=== PATIENT | male | born 1950 | race American Indian/Alaskan Native ===

== ENCOUNTER 2022-05-14 14:46 | Inpatient (IN) | payer MEDICARE ==
--- NOTE | 2022-05-15 11:22 | Consultation ---
History of Present Illness - Reason for Consult Consult date: 05/15/22 Medical management Requesting physician: ANN JAMES - History of Present Illness 71 YO Male with Vascular Dementia with behavioral disturbance, Cerebral Atherosclerosis admitted to [facility] unit for psychiatric stabilization. Patient seen and evaluated in the recreation room. Patient denies fever, chills, chest pain, palpitation, adductive cough, skin rash and recent contact, no known exposure to COVID-19. Patient appears to be at baseline level of cognition and function. No reported nursing events. Past History Past Medical History: other (See HPI) Past Surgical History: No surgical history, Other (Reviewed) Social history: single. denies: smoking, alcohol abuse, prescription drug abuse Family history: diabetes, hypertension Medications and Allergies Allergies Allergy/AdvReac Type Severity Reaction Status Date / Time Penicillins Allergy Unknown Verified 05/14/22 23:31 Home Medications Medication Instructions Recorded Confirmed Last Taken Type Asenapine Maleate [Saphris] 5 mg SL HS 05/15/22 05/15/22 Unknown History Review of Systems Constitutional: no weight loss, no weight gain, no fever, no chills Ears, nose, mouth and throat: no ear pain, no tinnitis, no decreased hearing, no nasal congestion, no nasal discharge Gastrointestinal: no abdominal pain, no nausea, no constipation Genitourinary Male: no hematuria, no flank pain, no discharge Rectal: no pain, no incontinence, no bleeding Musculoskeletal: no neck stiffness, no neck pain, no shooting arm pain, no low back pain, no shooting leg pain Integumentary: no rash, no pruritis, no redness, no sores Neurological: no head injury, no paralysis, no parathesias, no numbness, no seizures Psychiatric: anxiety attacks, irritability, sadness/tearfullness, mood swings Endocrine: no cold intolerance, no polyphagia, no excessive thirst, no polyd ipsia, no nocturia, no excessive sweating Hematologic/Lymphatic: no easy bruising, no easy bleeding Allergic/Immunologic: no allergic rhinitis, no wheezing Exam - Constitutional Vitals: Temp Pulse Resp BP Pulse Ox 97.6 F 49 L 16 104/62 100 05/15/22 08:00 05/15/22 08:00 05/15/22 08:00 05/15/22 08:00 05/15/22 08:00 General appearance: Present: no acute distress - EENT Eyes: Present: PERRL ENT: hearing intact, clear oral mucosa - Neck Neck: Present: supple, normal ROM - Respiratory Respiratory effort: normal Respiratory: bilateral: CTA - Cardiovascular Heart Sounds: Present: S1 & S2. Absent: rub, click - Extremities Extremities: pulses symmetrical, No edema Peripheral Pulses: within normal limits - Abdominal General gastrointestinal: Present: soft, non-tender, non-distended, normal bowel sounds Male genitourinary: Present: normal - Integumentary Integumentary: Present: clear, warm, dry - Musculoskeletal Musculoskeletal: gait normal, strength equal bilaterally - Psychiatric Psychiatric: appropriate mood/affect, intact judgment & insight - Neurologic Neurologic: CNII-XII intact, moves all extremities Results - Labs CBC & Chem 7: 05/15/22 20:45 05/15/22 20:45 Assessment and Plan - Patient Problems (1) Vascular dementia with behavioral disturbance Current Visit: Yes Status: Acute Plan to address problem: For prompt, verbal redirection, benzodiazepine therapy as clinic indicated. (2) Cerebral atherosclerosis Current Visit: Yes Status: Acute Plan to address problem: Risk factor reduction, antiplatelet therapy as clinically indicated. (3) Major depression Current Visit: Yes Status: Acute Plan to address problem: Continue medical management, supportive care. (4) Generalized anxiety disorder Current Visit: Yes Status: Acute Plan to address problem: Benzodiazepine therapy as clinically indicated, supportive care (5) Advance care planning Current Visit: Yes Status: Acute Plan to address problem: Disease education data, care plan discussed, diagnoses discussed, prognosis discussed, patient is full code, +30 minutes. (6) Preventative health care Current Visit: Yes Status: Acute Plan to address problem: Patient counseled regarding home safety, outpatient follow-up with primary care physician for all age and risk factor appropriate screening test. +30 minutes.
--- NOTE | 2022-05-15 13:09 | History and Physical Report ---
GP History & Physical - History of Present Illness Date of admission: 05/14/22 Date of Examination: 05/15/22 Reason for Admission: Danger to self, Failure of Outpatient Treatment, Severe anxiety/depression History of Present Illness: HPI: Hx/o Dementia with psychosis symptoms. Pt wondering out of the house, confused, agitated, and non-compliance medication. Aggressive behaviors with at home. The patient was seen today. He is lying in bed confused and disorganized. He is mumbling and not making any sense. PAST PSYCHIATRIC HISTORY: Unable to assess PAST MEDICAL HISTORY: None reported Family Psychiatric History None reported or documented SOCIAL HISTORY Unable to assess REVIEW OF SYSTEMS Unable to assess MENTAL STATUS Unable to assess Treatment Plan Patient will be admitted for inpatient psychiatric evaluation, medication adjustment and close monitoring The patient's behavior, mood, sleep and appetite will be closely monitored. Patient will be enrolled in individual and group therapeutic sessions and encouraged to attend. Patient will be provided with a safe and structured environment. Patient's physical health needs will be addressed by the Hospitalist. Hospitalist Consulted Labs including CBC, CMP, Lipid profile and Hemoglobin A1C ordered Social Assessment will be completed and the [employer] will work with patient and family to ensure a suitable and safe disposition Medication adjustment will be made as clinically indicated Restarted home med Usual Wellness Worship/Preservation: -Trazodone 50mg po qhs - Start [place]-3 for brain health, reduce impulsivity, and as adjunctive treatment for mood disorder, continue upon discharge given overall benefits. The patient agreed on the treatment plan, understood the risk, benefit, alternative treatment, potential consequence of no treatment, and gave informed consent. Legal Status: Voluntary Reaction to Hospitalization: Accepting Medications and Allergies Allergies Allergy/AdvReac Type Severity Reaction Status Date / Time Penicillins Allergy Unknown Verified 05/14/22 23:31 Home Medications Medication Instructions Recorded Confirmed Last Taken Type Asenapine Maleate [Saphris] 5 mg SL HS 05/15/22 05/15/22 Unknown History Active Meds: Active Medications Miscellaneous Medication (Asenapine Maleate [Saphris]) 5 mg SL HS [facility] Results - Results Labs/Vitals: Laboratory Last Values POC Glucose 83 mg/dL (70-105) 05/15/22 11:16 Last Vital Signs Temp 97.6 F 05/15/22 08:00 Pulse 49 L 05/15/22 08:00 Resp 16 05/15/22 08:00 BP 104/62 08/02/22 08:00 Pulse Ox 100 05/15/22 08:00 Physical Examination - Constitutional Vitals: Vital Signs Temp Pulse Resp BP Pulse Ox 97.6 F 49 L 16 104/62 100 05/15/22 08:00 05/15/22 08:00 05/15/22 08:00 05/15/22 08:00 05/15/22 08:00 Temperature -Last 24 Hours Temperature 97.6 F Temperature 98.3 F Mental Status Exam - Vital signs Last Vital Signs Temp 97.6 F 05/15/22 08:00 Pulse 49 L 05/15/22 08:00 Resp 16 05/15/22 08:00 BP 104/62 05/15/22 08:00 Pulse Ox 100 05/15/22 08:00 Physician Certification - Certification Statement Physician Certification Statement: This is an acknowledgement statement that ALEXSANDRA MASTERS is a 71 year old M who requires inpatient psychiatric admission for treatment which could reasonably be expected to improve the patient's condition for Estimated period of time patient will need to remain in the hospital: [ ] Plan for post-hospital care: [ ]
[2022-05-15 21:11] LABS: Basophils # (Auto) 0.1 K/mm3 (0.0-0.1); Basophils % (Auto) 0.9 % (0.0-1.8); Eosinophils # (Auto) 0.1 K/mm3 (0.0-0.4); Eosinophils % (Auto) 1.9 % (0.0-4.3); Hemoglobin 13.9 gm/dl (11.8-15.2); Lymphocytes # (Auto) 2.2 K/mm3 (1.2-5.4); Lymphocytes % (Auto) 28.8 % (13.4-35.0); Mean Corpuscular HGB Conc 33 % (32-34); Mean Corpuscular Volume 87 fl (84-94); Monocytes # (Auto) 0.5 K/mm3 (0.0-0.8); Monocytes % (Auto) 5.9 % (0.0-7.3); Platelet Count 317 K/mm3 (140-440); Red Blood Count 4.82 M/mm3 (3.65-5.03); Red Cell Distribution Width 13.6 % (13.2-15.2)
[2022-05-15] MEDS: traZODone 50 MG TAB PO SCH (21:21)
[2022-05-15] MEDS: OMEGA-3 FATTY ACIDS/FISH OIL 1 GRAM CAP PO SCH (21:21)
[2022-05-15] MEDS: ASENAPINE MALEATE 5 MG SL SCH (21:22)
[2022-05-15 21:26] LABS: Alanine Aminotransferase 12 units/L (7-56); BUN/Creatinine Ratio 8; Blood Urea Nitrogen 11 mg/dL (9-20); Calcium 9.2 mg/dL (8.4-10.2); Chol/HDL Ratio 2.48 %; HDL Cholesterol 60 mg/dL (40-59); Hemolysis Index 29; LDL Cholesterol,Direct 81 mg/dL (50-130)
[2022-05-16] MEDS: OMEGA-3 FATTY ACIDS/FISH OIL 1 GRAM CAP PO SCH ×4 (09:15→23:48)
--- NOTE | 2022-05-16 16:25 | Progress Note ---
Subjective Date of service: 05/16/22 Principal diagnosis: Dementia with Behavioral Disturbance Subjective Comment: The patient was seen today. He is in the dayroom eating. He is confused. He does say that he slept well and is doing ok. He starts mumbling after that. Staff says the patient is not eating or sleeping. REVIEW OF SYSTEMS Unable to assess MENTAL STATUS Unable to assess Treatment Plan Patient will be admitted for inpatient psychiatric evaluation, medication adjustment and close monitoring The patient's behavior, mood, sleep and appetite will be closely monitored. Patient will be enrolled in individual and group therapeutic sessions and encouraged to attend. Patient will be provided with a safe and structured environment. Patient's physical health needs will be addressed by the Hospitalist. Hospitalist Consulted Labs including CBC, CMP, Lipid profile and Hemoglobin A1C ordered Social Assessment will be completed and the [employer] will work with patient and family to ensure a suitable and safe disposition Medication adjustment will be made as clinically indicated Start Mirtazepine 7.5mg po qhs to induces sleep and stimulate appetite Usual Wellness Yazidi/Preservation: -Trazodone 50mg po qhs - Start [place]-3 for brain health, reduce impulsivity, and as adjunctive treatment for mood disorder, continue upon discharge given overall benefits. The patient agreed on the treatment plan, understood the risk, benefit, alternative treatment, potential consequence of no treatment, and gave informed consent. Case staffed with Dr. Joy Medications and Allergies Allergies Allergy/AdvReac Type Severity Reaction Status Date / Time Penicillins Allergy Unknown Verified 05/14/22 23:31 Home Medications Medication Instructions Recorded Confirmed Last Taken Type Asenapine Maleate [Saphris] 5 mg SL HS 05/15/22 05/15/22 Unknown History Active Meds: Active Medications Fish Oil ([place]-3 Fatty Acids/Fish Oil 1 Gram Cap) 2,000 mg PO BID [facility] Last Admin: 05/16/22 10:04 Dose: Not Given Miscellaneous Medication (Asenapine Maleate [Saphris]) 5 mg SL HS [facility] Last Admin: 05/15/22 21:22 Dose: Not Given Trazodone HCl (Trazodone 50 Mg Tab) 50 mg PO QHS [facility] Last Admin: 05/15/22 21:21 Dose: 50 mg Results - Results Labs/Vitals: Laboratory Last Values WBC 7.7 K/mm3 (4.5-11.0) 05/15/22 20:45 RBC 4.82 M/mm3 (3.65-5.03) 05/15/22 20:45 Hgb 13.9 gm/dl (11.8-15.2) 05/15/22 20:45 Hct 42.0 % (35.5-45.6) 05/15/22 20:45 MCV 87 fl (84-94) 05/15/22 20:45 MCH 29 pg (28-32) 05/15/22 20:45 MCHC 33 % (32-34) 05/15/22 20:45 RDW 13.6 % (13.2-15.2) 05/15/22 20:45 Plt Count 317 K/mm3 (140-440) 05/15/22 20:45 Lymph % (Auto) 28.8 % (13.4-35.0) 05/15/22 20:45 [place] % (Auto) 5.9 % (0.0-7.3) 05/15/22 20:45 Eos % (Auto) 1.9 % (0.0-4.3) 05/15/22 20:45 Baso % (Auto) 0.9 % (0.0-1.8) 05/15/22 20:45 Lymph # (Auto) 2.2 K/mm3 (1.2-5.4) 05/15/22 20:45 [place] # (Auto) 0.5 K/mm3 (0.0-0.8) 05/15/22 20:45 Eos # (Auto) 0.1 K/mm3 (0.0-0.4) 05/15/22 20:45 Baso # (Auto) 0.1 K/mm3 (0.0-0.1) 05/15/22 20:45 Seg Neutrophils % 62.5 % (40.0-70.0) 05/15/22 20:45 Seg Neutrophils # 4.8 K/mm3 (1.8-7.7) 05/15/22 20:45 Sodium 140 mmol/L (137-145) 05/15/22 20:45 Potassium 3.7 mmol/L (3.6-5.0) 05/15/22 20:45 Chloride 102.0 mmol/L (98-107) 05/15/22 20:45 Carbon Dioxide 28 mmol/L (22-30) 05/15/22 20:45 Anion Gap 14 mmol/L 05/15/22 20:45 BUN 11 mg/dL (9-20) 05/15/22 20:45 Creatinine 1.3 mg/dL (0.8-1.3) 05/15/22 20:45 Estimated GFR > 60 ml/min 05/15/22 20:45 BUN/Creatinine Ratio 8 % 05/15/22 20:45 Glucose 84 mg/dL (75-100) 05/15/22 20:45 POC Glucose 80 mg/dL (70-105) 05/16/22 11:43 Hemoglobin A1c 5.6 % (4-6) 05/15/22 20:45 Calcium 9.2 mg/dL (8.4-10.2) 05/15/22 20:45 Total Bilirubin 0.50 mg/dL (0.1-1.2) 05/15/22 20:45 AST 18 units/L (5-40) 05/15/22 20:45 ALT 12 units/L (7-56) 05/15/22 20:45 Alkaline Phosphatase 61 units/L (35-129) 05/15/22 20:45 Total Protein 6.7 g/dL (6.3-8.2) 05/15/22 20:45 Albumin 4.0 g/dL (3.9-5) 05/15/22 20:45 Albumin/Globulin Ratio 1.5 % 05/15/22 20:45 Triglycerides 89 mg/dL (2-149) 05/15/22 20:45 Cholesterol 149 mg/dL (50-199) 05/15/22 20:45 LDL Cholesterol Direct 81 mg/dL (50-130) 05/15/22 20:45 HDL Cholesterol 60 mg/dL (40-59) H 05/15/22 20:45 Cholesterol/HDL Ratio 2.48 % 05/15/22 20:45 TSH 1.590 mlU/mL (0.270-4.200) 05/15/22 20:45 Last Vital Signs Temp 97.3 F L 05/16/22 09:52 Pulse 56 L 05/16/22 09:52 Resp 18 05/16/22 09:52 BP 99/53 05/16/22 09:52 Pulse Ox 98 05/16/22 09:52
[2022-05-16] MEDS: MIRTAZAPINE 15 MG TAB PO SCH (21:13)
[2022-05-16] MEDS: traZODone 50 MG TAB PO SCH (21:13)
[2022-05-16] MEDS: ASENAPINE MALEATE 5 MG SL SCH (21:14)
--- NOTE | 2022-05-17 09:41 | Progress Note ---
Subjective Date of service: 05/17/22 Principal diagnosis: Dementia with Behavioral Disturbance Subjective Comment: The patient was seen today. He is in the dayroom eating. He is confused. He does not speak today. He just mumbles and stares around. REVIEW OF SYSTEMS Unable to assess MENTAL STATUS Unable to assess Treatment Plan Patient will be admitted for inpatient psychiatric evaluation, medication adjustment and close monitoring The patient's behavior, mood, sleep and appetite will be closely monitored. Patient will be enrolled in individual and group therapeutic sessions and encouraged to attend. Patient will be provided with a safe and structured environment. Patient's physical health needs will be addressed by the Hospitalist. Hospitalist Consulted Labs including CBC, CMP, Lipid profile and Hemoglobin A1C ordered Social Assessment will be completed and the [employer] will work with patient and family to ensure a suitable and safe disposition Medication adjustment will be made as clinically indicated Start Mirtazepine 7.5mg po qhs to induces sleep and stimulate appetite yesterday No changes made today Usual Wellness Church/Preservation: -Trazodone 50mg po qhs - Start [place]-3 for brain health, reduce impulsivity, and as adjunctive treatment for mood disorder, continue upon discharge given overall benefits. The patient agreed on the treatment plan, understood the risk, benefit, alternative treatment, potential consequence of no treatment, and gave informed consent. Case staffed with Dr. Joy Medications and Allergies Allergies Allergy/AdvReac Type Severity Reaction Status Date / Time Penicillins Allergy Unknown Verified 05/14/22 23:31 Home Medications Medication Instructions Recorded Confirmed Last Taken Type Asenapine Maleate [Saphris] 5 mg [facility] 05/15/22 05/15/22 Unknown History Active Meds: Active Medications Fish Oil ([place]-3 Fatty Acids/Fish Oil 1 Gram Cap) 2,000 mg PO BID [facility] Last Admin: 05/16/22 23:48 Dose: Not Given Mirtazapine (Mirtazapine 15 Mg Tab) 7.5 mg PO QHS [facility] Last Admin: 05/16/22 21:13 Dose: 7.5 mg Miscellaneous Medication (Asenapine Maleate [Saphris]) 5 mg SL [facility] Last Admin: 05/16/22 21:14 Dose: Not Given Trazodone HCl (Trazodone 50 Mg Tab) 50 mg PO QHS [facility] Last Admin: 05/16/22 21:13 Dose: 50 mg Results - Results Labs/Vitals: Laboratory Last Values WBC 7.7 K/mm3 (4.5-11.0) 05/15/22 20:45 RBC 4.82 M/mm3 (3.65-5.03) 05/15/22 20:45 Hgb 13.9 gm/dl (11.8-15.2) 05/15/22 20:45 Hct 42.0 % (35.5-45.6) 05/15/22 20:45 MCV 87 fl (84-94) 05/15/22 20:45 MCH 29 pg (28-32) 05/15/22 20:45 MCHC 33 % (32-34) 05/15/22 20:45 RDW 13.6 % (13.2-15.2) 05/15/22 20:45 Plt Count 317 K/mm3 (140-440) 05/15/22 20:45 Lymph % (Auto) 28.8 % (13.4-35.0) 05/15/22 20:45 [place] % (Auto) 5.9 % (0.0-7.3) 05/15/22 20:45 Eos % (Auto) 1.9 % (0.0-4.3) 05/15/22 20:45 Baso % (Auto) 0.9 % (0.0-1.8) 05/15/22 20:45 Lymph # (Auto) 2.2 K/mm3 (1.2-5.4) 05/15/22 20:45 [place] # (Auto) 0.5 K/mm3 (0.0-0.8) 05/15/22 20:45 Eos # (Auto) 0.1 K/mm3 (0.0-0.4) 05/15/22 20:45 Baso # (Auto) 0.1 K/mm3 (0.0-0.1) 05/15/22 20:45 Seg Neutrophils % 62.5 % (40.0-70.0) 05/15/22 20:45 Seg Neutrophils # 4.8 K/mm3 (1.8-7.7) 05/15/22 20:45 Sodium 140 mmol/L (137-145) 05/15/22 20:45 Potassium 3.7 mmol/L (3.6-5.0) 05/15/22 20:45 Chloride 102.0 mmol/L (98-107) 05/15/22 20:45 Carbon Dioxide 28 mmol/L (22-30) 05/15/22 20:45 Anion Gap 14 mmol/L 05/15/22 20:45 BUN 11 mg/dL (9-20) 05/15/22 20:45 Creatinine 1.3 mg/dL (0.8-1.3) 05/15/22 20:45 Estimated GFR > 60 ml/min 05/15/22 20:45 BUN/Creatinine Ratio 8 % 05/15/22 20:45 Glucose 84 mg/dL (75-100) 05/15/22 20:45 POC Glucose 80 mg/dL (70-105) 05/16/22 11:43 Hemoglobin A1c 5.6 % (4-6) 05/15/22 20:45 Calcium 9.2 mg/dL (8.4-10.2) 05/15/22 20:45 Total Bilirubin 0.50 mg/dL (0.1-1.2) 05/15/22 20:45 AST 18 units/L (5-40) 05/15/22 20:45 ALT 12 units/L (7-56) 05/15/22 20:45 Alkaline Phosphatase 61 units/L (35-129) 05/15/22 20:45 Total Protein 6.7 g/dL (6.3-8.2) 05/15/22 20:45 Albumin 4.0 g/dL (3.9-5) 05/15/22 20:45 Albumin/Globulin Ratio 1.5 % 05/15/22 20:45 Triglycerides 89 mg/dL (2-149) 05/15/22 20:45 Cholesterol 149 mg/dL (50-199) 05/15/22 20:45 LDL Cholesterol Direct 81 mg/dL (50-130) 05/15/22 20:45 HDL Cholesterol 60 mg/dL (40-59) H 05/15/22 20:45 Cholesterol/HDL Ratio 2.48 % 05/15/22 20:45 TSH 1.590 mlU/mL (0.270-4.200) 05/15/22 20:45 Last Vital Signs Temp 98.0 F 05/17/22 07:32 Pulse 47 L 05/17/22 07:32 Resp 20 05/17/22 07:32 BP 120/75 05/17/22 07:32 Pulse Ox 100 05/17/22 07:32
[2022-05-17] MEDS: OMEGA-3 FATTY ACIDS/FISH OIL 1 GRAM CAP PO SCH (10:15)
--- NOTE | 2022-05-17 18:56 | Progress Note ---
Assessment and Plan - Patient Problems (1) Vascular dementia with behavioral disturbance Current Visit: Yes Status: Acute Plan to address problem: For prompt, verbal redirection, benzodiazepine therapy as clinic indicated. (2) Cerebral atherosclerosis Current Visit: Yes Status: Acute Plan to address problem: Risk factor reduction, antiplatelet therapy as clinically indicated. (3) Major depression Current Visit: Yes Status: Acute Plan to address problem: Continue medical management, supportive care. (4) Generalized anxiety disorder Current Visit: Yes Status: Acute Plan to address problem: Benzodiazepine therapy as clinically indicated, supportive care (5) Advance care planning Current Visit: Yes Status: Acute Plan to address problem: Disease education data, care plan discussed, diagnoses discussed, prognosis discussed, patient is full code, +30 minutes. (6) Preventative health care Current Visit: Yes Status: Acute Plan to address problem: Patient counseled regarding home safety, outpatient follow-up with primary care physician for all age and risk factor appropriate screening test. +30 minutes. History Interval history: 71 YO Male with Vascular Dementia with behavioral disturbance, Cerebral Atherosclerosis admitted to [facility] psych unit for psychiatric stabilization. consult placed by Dr. Reid for medical management. Patient seen and evaluated in the recreation room. Patient appears to be at baseline level of cognition and function. No reported nursing events. Hospitalist Physical - Constitutional Vitals: Temp Pulse Resp BP Pulse Ox 98.0 F 47 L 20 120/75 100 05/17/22 07:32 05/17/22 07:32 05/17/22 07:32 05/17/22 07:32 05/17/22 07:32 General appearance: Present: no acute distress - EENT Eyes: Present: PERRL ENT: hearing decreased - Neck Neck: Present: supple - Respiratory Respiratory effort: normal Respiratory: bilateral: diminished - Cardiovascular Rhythm: regular Heart Sounds: Present: S1 & S2 - Extremities Extremities: no ischemia Peripheral Pulses: within normal limits - Abdominal General gastrointestinal: soft, non-tender, non-distended - Integumentary Integumentary: Present: clear, dry - Psychiatric Psychiatric: cooperative - Neurologic Neurologic: CNII-XII intact Results - Labs CBC & Chem 7: 05/15/22 20:45 05/15/22 20:45 Labs: Laboratory Last Values WBC 7.7 K/mm3 (4.5-11.0) 05/15/22 20:45 RBC 4.82 M/mm3 (3.65-5.03) 05/15/22 20:45 Hgb 13.9 gm/dl (11.8-15.2) 05/15/22 20:45 Hct 42.0 % (35.5-45.6) 05/15/22 20:45 MCV 87 fl (84-94) 05/15/22 20:45 MCH 29 pg (28-32) 05/15/22 20:45 MCHC 33 % (32-34) 05/15/22 20:45 RDW 13.6 % (13.2-15.2) 05/15/22 20:45 Plt Count 317 K/mm3 (140-440) 05/15/22 20:45 Lymph % (Auto) 28.8 % (13.4-35.0) 05/15/22 20:45 [facility] % (Auto) 5.9 % (0.0-7.3) 05/15/22 20:45 Eos % (Auto) 1.9 % (0.0-4.3) 05/15/22 20:45 Baso % (Auto) 0.9 % (0.0-1.8) 05/15/22 20:45 Lymph # (Auto) 2.2 K/mm3 (1.2-5.4) 05/15/22 20:45 [facility] # (Auto) 0.5 K/mm3 (0.0-0.8) 05/15/22 20:45 Eos # (Auto) 0.1 K/mm3 (0.0-0.4) 05/15/22 20:45 Baso # (Auto) 0.1 K/mm3 (0.0-0.1) 05/15/22 20:45 Seg Neutrophils % 62.5 % (40.0-70.0) 05/15/22 20:45 Seg Neutrophils # 4.8 K/mm3 (1.8-7.7) 05/15/22 20:45 Sodium 140 mmol/L (137-145) 05/15/22 20:45 Potassium 3.7 mmol/L (3.6-5.0) 05/15/22 20:45 Chloride 102.0 mmol/L (98-107) 05/15/22 20:45 Carbon Dioxide 28 mmol/L (22-30) 05/15/22 20:45 Anion Gap 14 mmol/L 05/15/22 20:45 BUN 11 mg/dL (9-20) 05/15/22 20:45 Creatinine 1.3 mg/dL (0.8-1.3) 05/15/22 20:45 Estimated GFR > 60 ml/min 05/15/22 20:45 BUN/Creatinine Ratio 8 % 05/15/22 20:45 Glucose 84 mg/dL (75-100) 05/15/22 20:45 POC Glucose 80 mg/dL (70-105) 05/16/22 11:43 Hemoglobin A1c 5.6 % (4-6) 05/15/22 20:45 Calcium 9.2 mg/dL (8.4-10.2) 05/15/22 20:45 Total Bilirubin 0.50 mg/dL (0.1-1.2) 05/15/22 20:45 AST 18 units/L (5-40) 05/15/22 20:45 ALT 12 units/L (7-56) 05/15/22 20:45 Alkaline Phosphatase 61 units/L (35-129) 05/15/22 20:45 Total Protein 6.7 g/dL (6.3-8.2) 05/15/22 20:45 Albumin 4.0 g/dL (3.9-5) 05/15/22 20:45 Albumin/Globulin Ratio 1.5 % 05/15/22 20:45 Triglycerides 89 mg/dL (2-149) 05/15/22 20:45 Cholesterol 149 mg/dL (50-199) 05/15/22 20:45 LDL Cholesterol Direct 81 mg/dL (50-130) 05/15/22 20:45 HDL Cholesterol 60 mg/dL (40-59) H 05/15/22 20:45 Cholesterol/HDL Ratio 2.48 % 05/15/22 20:45 TSH 1.590 mlU/mL (0.270-4.200) 05/15/22 20:45 Bailey/IV: Voiding Method Incontinent Active Medications - Current Medications Current Medications: Generic Name Dose Route Start Last Admin Trade Name Freq PRN Reason Stop Dose Admin Mirtazapine 7.5 mg 05/16/22 22:00 05/16/22 21:13 Mirtazapine 15 Mg Tab PO 7.5 mg QHS [facility] Administration Miscellaneous Medication 5 mg 05/15/22 22:00 05/16/22 21:14 Asenapine Maleate [Saphris] SL Not Given HS [facility] Trazodone HCl 50 mg 05/15/22 22:00 05/16/22 21:13 Trazodone 50 Mg Tab PO 50 mg QHS [facility] Administration
[2022-05-17] MEDS: traZODone 50 MG TAB PO SCH (21:34)
[2022-05-17] MEDS: MIRTAZAPINE 15 MG TAB PO SCH (21:35)
[2022-05-17] MEDS: ASENAPINE MALEATE 5 MG SL SCH (23:48)
--- NOTE | 2022-05-18 12:38 | Progress Note ---
Subjective Date of service: 05/18/22 Principal diagnosis: Dementia with Behavioral Disturbance Subjective Comment: 05/18: The patient was seen eating breakfast. He is calm but not engaging with the provider. No aggressive behavior reported. REVIEW OF SYSTEMS Unable to assess MENTAL STATUS Unable to assess Treatment Plan Dementia Patient will be admitted for inpatient psychiatric evaluation, medication adjustment and close monitoring The patient's behavior, mood, sleep and appetite will be closely monitored. Patient will be enrolled in individual and group therapeutic sessions and encouraged to attend. Patient will be provided with a safe and structured environment. Patient's physical health needs will be addressed by the Hospitalist. Hospitalist Consulted Labs including CBC, CMP, Lipid profile and Hemoglobin A1C ordered Social Assessment will be completed and the Advisor Consultant will work with patient and family to ensure a suitable and safe disposition Medication adjustment will be made as clinically indicated Continue Mirtazepine 7.5mg po qhs No changes made today Usual Wellness Islam/Preservation: -Trazodone 50mg po qhs - Start [place]-3 for brain health, reduce impulsivity, and as adjunctive treatment for mood disorder, continue upon discharge given overall benefits. The patient agreed on the treatment plan, understood the risk, benefit, alternative treatment, potential consequence of no treatment, and gave informed consent. Case staffed with Dr. Joy Medications and Allergies Allergies Allergy/AdvReac Type Severity Reaction Status Date / Time Penicillins Allergy Unknown Verified 05/14/22 23:31 Home Medications Medication Instructions Recorded Confirmed Last Taken Type Asenapine Maleate [Saphris] 5 mg SL HS 05/15/22 05/15/22 Unknown History Active Meds: Active Medications Mirtazapine (Mirtazapine 15 Mg Tab) 7.5 mg PO QHS [facility] Last Admin: 05/17/22 21:35 Dose: 7.5 mg Miscellaneous Medication (Asenapine Maleate [Saphris]) 5 mg SL HS [facility] Last Admin: 05/17/22 23:48 Dose: Not Given Trazodone HCl (Trazodone 50 Mg Tab) 50 mg PO QHS [facility] Last Admin: 05/17/22 21:34 Dose: 50 mg Results - Results Labs/Vitals: Laboratory Last Values WBC 7.7 K/mm3 (4.5-11.0) 05/15/22 20:45 RBC 4.82 M/mm3 (3.65-5.03) 05/15/22 20:45 Hgb 13.9 gm/dl (11.8-15.2) 05/15/22 20:45 Hct 42.0 % (35.5-45.6) 05/15/22 20:45 MCV 87 fl (84-94) 05/15/22 20:45 MCH 29 pg (28-32) 05/15/22 20:45 MCHC 33 % (32-34) 05/15/22 20:45 RDW 13.6 % (13.2-15.2) 05/15/22 20:45 Plt Count 317 K/mm3 (140-440) 05/15/22 20:45 Lymph % (Auto) 28.8 % (13.4-35.0) 05/15/22 20:45 [place] % (Auto) 5.9 % (0.0-7.3) 05/15/22 20:45 Eos % (Auto) 1.9 % (0.0-4.3) 05/15/22 20:45 Baso % (Auto) 0.9 % (0.0-1.8) 05/15/22 20:45 Lymph # (Auto) 2.2 K/mm3 (1.2-5.4) 05/15/22 20:45 [place] # (Auto) 0.5 K/mm3 (0.0-0.8) 05/15/22 20:45 Eos # (Auto) 0.1 K/mm3 (0.0-0.4) 05/15/22 20:45 Baso # (Auto) 0.1 K/mm3 (0.0-0.1) 05/15/22 20:45 Seg Neutrophils % 62.5 % (40.0-70.0) 05/15/22 20:45 Seg Neutrophils # 4.8 K/mm3 (1.8-7.7) 05/15/22 20:45 Sodium 140 mmol/L (137-145) 05/15/22 20:45 Potassium 3.7 mmol/L (3.6-5.0) 05/15/22 20:45 Chloride 102.0 mmol/L (98-107) 05/15/22 20:45 Carbon Dioxide 28 mmol/L (22-30) 05/15/22 20:45 Anion Gap 14 mmol/L 05/15/22 20:45 BUN 11 mg/dL (9-20) 05/15/22 20:45 Creatinine 1.3 mg/dL (0.8-1.3) 05/15/22 20:45 Estimated GFR > 60 ml/min 05/15/22 20:45 BUN/Creatinine Ratio 8 % 05/15/22 20:45 Glucose 84 mg/dL (75-100) 05/15/22 20:45 POC Glucose 80 mg/dL (70-105) 05/16/22 11:43 Hemoglobin A1c 5.6 % (4-6) 05/15/22 20:45 Calcium 9.2 mg/dL (8.4-10.2) 05/15/22 20:45 Total Bilirubin 0.50 mg/dL (0.1-1.2) 05/15/22 20:45 AST 18 units/L (5-40) 05/15/22 20:45 ALT 12 units/L (7-56) 05/15/22 20:45 Alkaline Phosphatase 61 units/L (35-129) 05/15/22 20:45 Total Protein 6.7 g/dL (6.3-8.2) 05/15/22 20:45 Albumin 4.0 g/dL (3.9-5) 05/15/22 20:45 Albumin/Globulin Ratio 1.5 % 05/15/22 20:45 Triglycerides 89 mg/dL (2-149) 05/15/22 20:45 Cholesterol 149 mg/dL (50-199) 05/15/22 20:45 LDL Cholesterol Direct 81 mg/dL (50-130) 05/15/22 20:45 HDL Cholesterol 60 mg/dL (40-59) H 05/15/22 20:45 Cholesterol/HDL Ratio 2.48 % 05/15/22 20:45 TSH 1.590 mlU/mL (0.270-4.200) 05/15/22 20:45 Last Vital Signs Temp 97.4 F L 05/18/22 10:32 Pulse 51 L 05/18/22 10:32 Resp 16 05/18/22 10:32 BP 112/62 05/18/22 10:32 Pulse Ox 100 05/18/22 10:32
[2022-05-18] MEDS: MIRTAZAPINE 15 MG TAB PO SCH (21:14)
[2022-05-18] MEDS: traZODone 50 MG TAB PO SCH (21:14)
[2022-05-18] MEDS: ASENAPINE MALEATE 5 MG SL SCH (21:15)
--- NOTE | 2022-05-19 09:52 | Progress Note ---
Subjective Date of service: 05/19/22 Principal diagnosis: Dementia with Behavioral Disturbance Subjective Comment: 05/19: The patient was seen resting in bed. The patient presents with confusion, answering yes to all questions. No aggressive behavior reported. 05/18: The patient was seen eating breakfast. He is calm but not engaging with the provider. No aggressive behavior reported. REVIEW OF SYSTEMS Unable to assess MENTAL STATUS Unable to assess Assessment Dementia Treatment Plan Patient will be admitted for inpatient psychiatric evaluation, medication adjustment and close monitoring The patient's behavior, mood, sleep and appetite will be closely monitored. Patient will be enrolled in individual and group therapeutic sessions and encouraged to attend. Patient will be provided with a safe and structured environment. Patient's physical health needs will be addressed by the Hospitalist. Hospitalist Consulted Labs including CBC, CMP, Lipid profile and Hemoglobin A1C ordered Social Assessment will be completed and the Prototype Sewer will work with patient and family to ensure a suitable and safe disposition Medication adjustment will be made as clinically indicated Continue Mirtazepine 7.5mg po qhs No changes made today Usual Wellness Moravian/Preservation: -Trazodone 50mg po qhs - Start [place]-3 for brain health, reduce impulsivity, and as adjunctive treatment for mood disorder, continue upon discharge given overall benefits. The patient agreed on the treatment plan, understood the risk, benefit, alternative treatment, potential consequence of no treatment, and gave informed consent. Case staffed with Dr. Joy Medications and Allergies Allergies Allergy/AdvReac Type Severity Reaction Status Date / Time Penicillins Allergy Unknown Verified 05/14/22 23:31 Home Medications Medication Instructions Recorded Confirmed Last Taken Type Asenapine Maleate [Saphris] 5 mg SL HS 05/15/22 05/15/22 Unknown History Active Meds: Active Medications Mirtazapine (Mirtazapine 15 Mg Tab) 7.5 mg PO QHS [facility] Last Admin: 05/18/22 21:14 Dose: 7.5 mg Miscellaneous Medication (Asenapine Maleate [Saphris]) 5 mg SL [facility] Last Admin: 05/18/22 21:15 Dose: Not Given Trazodone HCl (Trazodone 50 Mg Tab) 50 mg PO QHS [facility] Last Admin: 05/18/22 21:14 Dose: 50 mg Results - Results Labs/Vitals: Laboratory Last Values WBC 7.7 K/mm3 (4.5-11.0) 05/15/22 20:45 RBC 4.82 M/mm3 (3.65-5.03) 05/15/22 20:45 Hgb 13.9 gm/dl (11.8-15.2) 05/15/22 20:45 Hct 42.0 % (35.5-45.6) 05/15/22 20:45 MCV 87 fl (84-94) 05/15/22 20:45 MCH 29 pg (28-32) 05/15/22 20:45 MCHC 33 % (32-34) 05/15/22 20:45 RDW 13.6 % (13.2-15.2) 05/15/22 20:45 Plt Count 317 K/mm3 (140-440) 05/15/22 20:45 Lymph % (Auto) 28.8 % (13.4-35.0) 05/15/22 20:45 [place] % (Auto) 5.9 % (0.0-7.3) 05/15/22 20:45 Eos % (Auto) 1.9 % (0.0-4.3) 05/15/22 20:45 Baso % (Auto) 0.9 % (0.0-1.8) 05/15/22 20:45 Lymph # (Auto) 2.2 K/mm3 (1.2-5.4) 05/15/22 20:45 [place] # (Auto) 0.5 K/mm3 (0.0-0.8) 05/15/22 20:45 Eos # (Auto) 0.1 K/mm3 (0.0-0.4) 05/15/22 20:45 Baso # (Auto) 0.1 K/mm3 (0.0-0.1) 05/15/22 20:45 Seg Neutrophils % 62.5 % (40.0-70.0) 05/15/22 20:45 Seg Neutrophils # 4.8 K/mm3 (1.8-7.7) 05/15/22 20:45 Sodium 140 mmol/L (137-145) 05/15/22 20:45 Potassium 3.7 mmol/L (3.6-5.0) 05/15/22 20:45 Chloride 102.0 mmol/L (98-107) 05/15/22 20:45 Carbon Dioxide 28 mmol/L (22-30) 05/15/22 20:45 Anion Gap 14 mmol/L 05/15/22 20:45 BUN 11 mg/dL (9-20) 05/15/22 20:45 Creatinine 1.3 mg/dL (0.8-1.3) 05/15/22 20:45 Estimated GFR > 60 ml/min 05/15/22 20:45 BUN/Creatinine Ratio 8 % 05/15/22 20:45 Glucose 84 mg/dL (75-100) 05/15/22 20:45 POC Glucose 80 mg/dL (70-105) 05/16/22 11:43 Hemoglobin A1c 5.6 % (4-6) 05/15/22 20:45 Calcium 9.2 mg/dL (8.4-10.2) 05/15/22 20:45 Total Bilirubin 0.50 mg/dL (0.1-1.2) 05/15/22 20:45 AST 18 units/L (5-40) 05/15/22 20:45 ALT 12 units/L (7-56) 05/15/22 20:45 Alkaline Phosphatase 61 units/L (35-129) 05/15/22 20:45 Total Protein 6.7 g/dL (6.3-8.2) 05/15/22 20:45 Albumin 4.0 g/dL (3.9-5) 05/15/22 20:45 Albumin/Globulin Ratio 1.5 % 05/15/22 20:45 Triglycerides 89 mg/dL (2-149) 05/15/22 20:45 Cholesterol 149 mg/dL (50-199) 05/15/22 20:45 LDL Cholesterol Direct 81 mg/dL (50-130) 05/15/22 20:45 HDL Cholesterol 60 mg/dL (40-59) H 05/15/22 20:45 Cholesterol/HDL Ratio 2.48 % 05/15/22 20:45 TSH 1.590 mlU/mL (0.270-4.200) 05/15/22 20:45 Last Vital Signs Temp 97.3 F L 05/19/22 08:59 Pulse 66 05/19/22 08:59 Resp 16 05/19/22 08:59 BP 129/52 05/19/22 08:59 Pulse Ox 97 05/19/22 08:59
[2022-05-19] MEDS: MIRTAZAPINE 15 MG TAB PO SCH (22:05)
[2022-05-19] MEDS: traZODone 50 MG TAB PO SCH (22:05)
[2022-05-19] MEDS: ASENAPINE MALEATE 5 MG SL SCH (22:07)
--- NOTE | 2022-05-20 09:28 | Progress Note ---
Subjective Date of service: 05/20/22 Principal diagnosis: Dementia with Behavioral Disturbance Subjective Comment: 05/20:The patient was seen at breakfast socializing with peer. patient is confused. He reports sleep and appetite as good. No aggressive behavior reported. 05/19: The patient was seen resting in bed. The patient presents with confusion, answering yes to all questions. No aggressive behavior reported. 05/18: The patient was seen eating breakfast. He is calm but not engaging with the provider. No aggressive behavior reported. REVIEW OF SYSTEMS Unable to assess MENTAL STATUS Unable to assess Assessment Dementia with behavioral disturbances Treatment Plan Patient will be admitted for inpatient psychiatric evaluation, medication adjustment and close monitoring The patient's behavior, mood, sleep and appetite will be closely monitored. Patient will be enrolled in individual and group therapeutic sessions and encouraged to attend. Patient will be provided with a safe and structured environment. Patient's physical health needs will be addressed by the Hospitalist. Hospitalist Consulted Labs including CBC, CMP, Lipid profile and Hemoglobin A1C ordered Social Assessment will be completed and the Escapement Matcher will work with patient and family to ensure a suitable and safe disposition Medication adjustment will be made as clinically indicated Continue Mirtazepine 7.5mg po qhs No changes made today Usual Wellness Spiritism/Preservation: -Trazodone 50mg po qhs - Start [place]-3 for brain health, reduce impulsivity, and as adjunctive treatment for mood disorder, continue upon discharge given overall benefits. The patient agreed on the treatment plan, understood the risk, benefit, alternative treatment, potential consequence of no treatment, and gave informed consent. Case staffed with Dr. Joy Medications and Allergies Medications and Allergies Allergies Allergy/AdvReac Type Severity Reaction Status Date / Time Penicillins Allergy Unknown Verified 05/14/22 23:31 Home Medications Medication Instructions Recorded Confirmed Last Taken Type Asenapine Maleate [Saphris] 5 mg SL HS 05/15/22 05/15/22 Unknown History Active Meds: Active Medications Mirtazapine (Mirtazapine 15 Mg Tab) 7.5 mg PO QHS [facility] Last Admin: 05/19/22 22:05 Dose: 7.5 mg Miscellaneous Medication (Asenapine Maleate [Saphris]) 5 mg SL HS [facility] Last Admin: 05/19/22 22:07 Dose: Not Given Trazodone HCl (Trazodone 50 Mg Tab) 50 mg PO QHS [facility] Last Admin: 05/19/22 22:05 Dose: 50 mg Results - Results Labs/Vitals: Laboratory Last Values WBC 7.7 K/mm3 (4.5-11.0) 05/15/22 20:45 RBC 4.82 M/mm3 (3.65-5.03) 05/15/22 20:45 Hgb 13.9 gm/dl (11.8-15.2) 05/15/22 20:45 Hct 42.0 % (35.5-45.6) 05/15/22 20:45 MCV 87 fl (84-94) 05/15/22 20:45 MCH 29 pg (28-32) 05/15/22 20:45 MCHC 33 % (32-34) 05/15/22 20:45 RDW 13.6 % (13.2-15.2) 05/15/22 20:45 Plt Count 317 K/mm3 (140-440) 05/15/22 20:45 Lymph % (Auto) 28.8 % (13.4-35.0) 05/15/22 20:45 [place] % (Auto) 5.9 % (0.0-7.3) 05/15/22 20:45 Eos % (Auto) 1.9 % (0.0-4.3) 05/15/22 20:45 Baso % (Auto) 0.9 % (0.0-1.8) 05/15/22 20:45 Lymph # (Auto) 2.2 K/mm3 (1.2-5.4) 05/15/22 20:45 [place] # (Auto) 0.5 K/mm3 (0.0-0.8) 05/15/22 20:45 Eos # (Auto) 0.1 K/mm3 (0.0-0.4) 05/15/22 20:45 Baso # (Auto) 0.1 K/mm3 (0.0-0.1) 05/15/22 20:45 Seg Neutrophils % 62.5 % (40.0-70.0) 05/15/22 20:45 Seg Neutrophils # 4.8 K/mm3 (1.8-7.7) 05/15/22 20:45 Sodium 140 mmol/L (137-145) 05/15/22 20:45 Potassium 3.7 mmol/L (3.6-5.0) 05/15/22 20:45 Chloride 102.0 mmol/L (98-107) 05/15/22 20:45 Carbon Dioxide 28 mmol/L (22-30) 05/15/22 20:45 Anion Gap 14 mmol/L 05/15/22 20:45 BUN 11 mg/dL (9-20) 05/15/22 20:45 Creatinine 1.3 mg/dL (0.8-1.3) 05/15/22 20:45 Estimated GFR > 60 ml/min 05/15/22 20:45 BUN/Creatinine Ratio 8 % 05/15/22 20:45 Glucose 84 mg/dL (75-100) 05/15/22 20:45 POC Glucose 80 mg/dL (70-105) 05/16/22 11:43 Hemoglobin A1c 5.6 % (4-6) 05/15/22 20:45 Calcium 9.2 mg/dL (8.4-10.2) 05/15/22 20:45 Total Bilirubin 0.50 mg/dL (0.1-1.2) 05/15/22 20:45 AST 18 units/L (5-40) 05/15/22 20:45 ALT 12 units/L (7-56) 05/15/22 20:45 Alkaline Phosphatase 61 units/L (35-129) 05/15/22 20:45 Total Protein 6.7 g/dL (6.3-8.2) 05/15/22 20:45 Albumin 4.0 g/dL (3.9-5) 05/15/22 20:45 Albumin/Globulin Ratio 1.5 % 05/15/22 20:45 Triglycerides 89 mg/dL (2-149) 05/15/22 20:45 Cholesterol 149 mg/dL (50-199) 05/15/22 20:45 LDL Cholesterol Direct 81 mg/dL (50-130) 05/15/22 20:45 HDL Cholesterol 60 mg/dL (40-59) H 05/15/22 20:45 Cholesterol/HDL Ratio 2.48 % 05/15/22 20:45 TSH 1.590 mlU/mL (0.270-4.200) 05/15/22 20:45 Last Vital Signs Temp 98.3 F 05/20/22 08:22 Pulse 55 L 05/20/22 08:22 Resp 20 05/20/22 08:22 BP 137/86 05/20/22 08:22 Pulse Ox 100 05/20/22 08:22
--- NOTE | 2022-05-20 14:31 | Progress Note ---
Assessment and Plan - Patient Problems (1) Vascular dementia with behavioral disturbance Current Visit: Yes Status: Acute Plan to address problem: For prompt, verbal redirection, benzodiazepine therapy as clinic indicated. (2) Cerebral atherosclerosis Current Visit: Yes Status: Acute Plan to address problem: Risk factor reduction, antiplatelet therapy as clinically indicated. (3) Major depression Current Visit: Yes Status: Acute Plan to address problem: Continue medical management, supportive care. (4) Generalized anxiety disorder Current Visit: Yes Status: Acute Plan to address problem: Benzodiazepine therapy as clinically indicated, supportive care (5) Advance care planning Current Visit: Yes Status: Acute Plan to address problem: Disease education data, care plan discussed, diagnoses discussed, prognosis discussed, patient is full code, +30 minutes. (6) Preventative health care Current Visit: Yes Status: Acute Plan to address problem: Patient counseled regarding home safety, outpatient follow-up with primary care physician for all age and risk factor appropriate screening test. +30 minutes. History Interval history: 71 YO Male with Vascular Dementia with behavioral disturbance, Cerebral Atherosclerosis admitted to [facility] psych unit for psychiatric stabilization. consult placed by Dr. Reid for medical management. Patient seen and evaluated in the recreation room. Patient appears to be at baseline level of cognition and function. No reported nursing events. Hospitalist Physical - Constitutional Vitals: Temp Pulse Resp BP Pulse Ox 98.3 F 55 L 20 137/86 100 05/20/22 08:22 05/20/22 08:22 05/20/22 08:22 05/20/22 08:22 05/20/22 08:22 General appearance: Present: no acute distress - EENT Eyes: Present: PERRL ENT: hearing decreased - Neck Neck: Present: supple - Respiratory Respiratory effort: normal Respiratory: bilateral: diminished - Cardiovascular Rhythm: regular Heart Sounds: Present: S1 & S2 - Extremities Extremities: no ischemia Peripheral Pulses: within normal limits - Abdominal General gastrointestinal: soft, non-tender, non-distended - Integumentary Integumentary: Present: clear, dry - Psychiatric Psychiatric: cooperative - Neurologic Neurologic: CNII-XII intact Results - Labs CBC & Chem 7: 05/15/22 20:45 05/15/22 20:45 Labs: Laboratory Last Values WBC 7.7 K/mm3 (4.5-11.0) 05/15/22 20:45 RBC 4.82 M/mm3 (3.65-5.03) 05/15/22 20:45 Hgb 13.9 gm/dl (11.8-15.2) 05/15/22 20:45 Hct 42.0 % (35.5-45.6) 05/15/22 20:45 MCV 87 fl (84-94) 05/15/22 20:45 MCH 29 pg (28-32) 05/15/22 20:45 MCHC 33 % (32-34) 05/15/22 20:45 RDW 13.6 % (13.2-15.2) 05/15/22 20:45 Plt Count 317 K/mm3 (140-440) 05/15/22 20:45 Lymph % (Auto) 28.8 % (13.4-35.0) 05/15/22 20:45 [place] % (Auto) 5.9 % (0.0-7.3) 05/15/22 20:45 Eos % (Auto) 1.9 % (0.0-4.3) 05/15/22 20:45 Baso % (Auto) 0.9 % (0.0-1.8) 05/15/22 20:45 Lymph # (Auto) 2.2 K/mm3 (1.2-5.4) 05/15/22 20:45 [place] # (Auto) 0.5 K/mm3 (0.0-0.8) 05/15/22 20:45 Eos # (Auto) 0.1 K/mm3 (0.0-0.4) 05/15/22 20:45 Baso # (Auto) 0.1 K/mm3 (0.0-0.1) 05/15/22 20:45 Seg Neutrophils % 62.5 % (40.0-70.0) 05/15/22 20:45 Seg Neutrophils # 4.8 K/mm3 (1.8-7.7) 05/15/22 20:45 Sodium 140 mmol/L (137-145) 05/15/22 20:45 Potassium 3.7 mmol/L (3.6-5.0) 05/15/22 20:45 Chloride 102.0 mmol/L (98-107) 05/15/22 20:45 Carbon Dioxide 28 mmol/L (22-30) 05/15/22 20:45 Anion Gap 14 mmol/L 05/15/22 20:45 BUN 11 mg/dL (9-20) 05/15/22 20:45 Creatinine 1.3 mg/dL (0.8-1.3) 05/15/22 20:45 Estimated GFR > 60 ml/min 05/15/22 20:45 BUN/Creatinine Ratio 8 % 05/15/22 20:45 Glucose 84 mg/dL (75-100) 05/15/22 20:45 POC Glucose 80 mg/dL (70-105) 05/16/22 11:43 Hemoglobin A1c 5.6 % (4-6) 05/15/22 20:45 Calcium 9.2 mg/dL (8.4-10.2) 05/15/22 20:45 Total Bilirubin 0.50 mg/dL (0.1-1.2) 05/15/22 20:45 AST 18 units/L (5-40) 05/15/22 20:45 ALT 12 units/L (7-56) 05/15/22 20:45 Alkaline Phosphatase 61 units/L (35-129) 05/15/22 20:45 Total Protein 6.7 g/dL (6.3-8.2) 05/15/22 20:45 Albumin 4.0 g/dL (3.9-5) 05/15/22 20:45 Albumin/Globulin Ratio 1.5 % 05/15/22 20:45 Triglycerides 89 mg/dL (2-149) 05/15/22 20:45 Cholesterol 149 mg/dL (50-199) 05/15/22 20:45 LDL Cholesterol Direct 81 mg/dL (50-130) 05/15/22 20:45 HDL Cholesterol 60 mg/dL (40-59) H 05/15/22 20:45 Cholesterol/HDL Ratio 2.48 % 05/15/22 20:45 TSH 1.590 mlU/mL (0.270-4.200) 05/15/22 20:45 [place]/IV: Voiding Method Incontinent Active Medications - Current Medications Current Medications: Generic Name Dose Route Start Last Admin Trade Name Freq PRN Reason Stop Dose Admin Mirtazapine 7.5 mg 05/16/22 22:00 05/19/22 22:05 Mirtazapine 15 Mg Tab PO 7.5 mg QHS [facility] Administration Miscellaneous Medication 5 mg 05/15/22 22:00 05/19/22 22:07 Asenapine Maleate [Saphris] SL Not Given HS [facility] Trazodone HCl 50 mg 05/15/22 22:00 05/19/22 22:05 Trazodone 50 Mg Tab PO 50 mg QHS [facility] Administration
[2022-05-20] MEDS: traZODone 50 MG TAB PO SCH (21:01)
[2022-05-20] MEDS: ASENAPINE MALEATE 5 MG SL SCH (21:01)
[2022-05-20] MEDS: MIRTAZAPINE 15 MG TAB PO SCH (21:02)
--- NOTE | 2022-05-21 09:52 | Progress Note ---
Subjective Date of service: 05/21/22 Principal diagnosis: Dementia with Behavioral Disturbance Subjective Comment: 05/21: The patient was seen today.He is confused and withdrawn. He reports sleep and appetite as good. No aggressive behavior reported. 05/20:The patient was seen at breakfast socializing with peer. patient is confused. He reports sleep and appetite as good. No aggressive behavior reported. 05/19: The patient was seen resting in bed. The patient presents with confusion, answering yes to all questions. No aggressive behavior reported. 05/18: The patient was seen eating breakfast. He is calm but not engaging with the provider. No aggressive behavior reported. REVIEW OF SYSTEMS Unable to assess MENTAL STATUS Unable to assess Assessment Dementia with behavioral disturbances Treatment Plan Patient will be admitted for inpatient psychiatric evaluation, medication adjustment and close monitoring The patient's behavior, mood, sleep and appetite will be closely monitored. Patient will be enrolled in individual and group therapeutic sessions and encouraged to attend. Patient will be provided with a safe and structured environment. Patient's physical health needs will be addressed by the Hospitalist. Hospitalist Consulted Labs including CBC, CMP, Lipid profile and Hemoglobin A1C ordered Social Assessment will be completed and the Mold Maker Helper will work with patient and family to ensure a suitable and safe disposition Medication adjustment will be made as clinically indicated Continue Mirtazepine 7.5mg po qhs No changes made today Usual Wellness Alevism/Preservation: -Trazodone 50mg po qhs - Start [place]-3 for brain health, reduce impulsivity, and as adjunctive treatment for mood disorder, continue upon discharge given overall benefits. The patient agreed on the treatment plan, understood the risk, benefit, alternative treatment, potential consequence of no treatment, and gave informed consent. Case staffed with Dr. Joy Medications and Allergies Medications and Allergies Allergies Allergy/AdvReac Type Severity Reaction Status Date / Time Penicillins Allergy Unknown Verified 05/14/22 23:31 Home Medications Medication Instructions Recorded Confirmed Last Taken Type Asenapine Maleate [Saphris] 5 mg SL HS 05/15/22 05/15/22 Unknown History Active Meds: Active Medications Mirtazapine (Mirtazapine 15 Mg Tab) 7.5 mg PO QHS [facility] Last Admin: 05/20/22 21:02 Dose: 7.5 mg Miscellaneous Medication (Asenapine Maleate [Saphris]) 5 mg SL HS [facility] Last Admin: 05/20/22 21:01 Dose: Not Given Trazodone HCl (Trazodone 50 Mg Tab) 50 mg PO QHS [facility] Last Admin: 05/20/22 21:01 Dose: 50 mg Results - Results Labs/Vitals: Laboratory Last Values WBC 7.7 K/mm3 (4.5-11.0) 05/15/22 20:45 RBC 4.82 M/mm3 (3.65-5.03) 05/15/22 20:45 Hgb 13.9 gm/dl (11.8-15.2) 05/15/22 20:45 Hct 42.0 % (35.5-45.6) 05/15/22 20:45 MCV 87 fl (84-94) 05/15/22 20:45 MCH 29 pg (28-32) 05/15/22 20:45 MCHC 33 % (32-34) 05/15/22 20:45 RDW 13.6 % (13.2-15.2) 05/15/22 20:45 Plt Count 317 K/mm3 (140-440) 05/15/22 20:45 Lymph % (Auto) 28.8 % (13.4-35.0) 05/15/22 20:45 [place] % (Auto) 5.9 % (0.0-7.3) 05/15/22 20:45 Eos % (Auto) 1.9 % (0.0-4.3) 05/15/22 20:45 Baso % (Auto) 0.9 % (0.0-1.8) 05/15/22 20:45 Lymph # (Auto) 2.2 K/mm3 (1.2-5.4) 05/15/22 20:45 [place] # (Auto) 0.5 K/mm3 (0.0-0.8) 05/15/22 20:45 Eos # (Auto) 0.1 K/mm3 (0.0-0.4) 05/15/22 20:45 Baso # (Auto) 0.1 K/mm3 (0.0-0.1) 05/15/22 20:45 Seg Neutrophils % 62.5 % (40.0-70.0) 05/15/22 20:45 Seg Neutrophils # 4.8 K/mm3 (1.8-7.7) 05/15/22 20:45 Sodium 140 mmol/L (137-145) 05/15/22 20:45 Potassium 3.7 mmol/L (3.6-5.0) 05/15/22 20:45 Chloride 102.0 mmol/L (98-107) 05/15/22 20:45 Carbon Dioxide 28 mmol/L (22-30) 05/15/22 20:45 Anion Gap 14 mmol/L 05/15/22 20:45 BUN 11 mg/dL (9-20) 05/15/22 20:45 Creatinine 1.3 mg/dL (0.8-1.3) 05/15/22 20:45 Estimated GFR > 60 ml/min 05/15/22 20:45 BUN/Creatinine Ratio 8 % 05/15/22 20:45 Glucose 84 mg/dL (75-100) 05/15/22 20:45 POC Glucose 80 mg/dL (70-105) 05/16/22 11:43 Hemoglobin A1c 5.6 % (4-6) 05/15/22 20:45 Calcium 9.2 mg/dL (8.4-10.2) 05/15/22 20:45 Total Bilirubin 0.50 mg/dL (0.1-1.2) 05/15/22 20:45 AST 18 units/L (5-40) 05/15/22 20:45 ALT 12 units/L (7-56) 05/15/22 20:45 Alkaline Phosphatase 61 units/L (35-129) 05/15/22 20:45 Total Protein 6.7 g/dL (6.3-8.2) 05/15/22 20:45 Albumin 4.0 g/dL (3.9-5) 05/15/22 20:45 Albumin/Globulin Ratio 1.5 % 05/15/22 20:45 Triglycerides 89 mg/dL (2-149) 05/15/22 20:45 Cholesterol 149 mg/dL (50-199) 05/15/22 20:45 LDL Cholesterol Direct 81 mg/dL (50-130) 05/15/22 20:45 HDL Cholesterol 60 mg/dL (40-59) H 05/15/22 20:45 Cholesterol/HDL Ratio 2.48 % 05/15/22 20:45 TSH 1.590 mlU/mL (0.270-4.200) 05/15/22 20:45 Last Vital Signs Temp 98.3 F 05/20/22 08:22 Pulse 55 L 05/20/22 08:22 Resp 20 05/20/22 08:22 BP 137/86 05/20/22 08:22 Pulse Ox 100 05/20/22 08:22
--- NOTE | 2022-05-21 19:53 | Progress Note ---
Assessment and Plan Assessment and Plan - Patient Problems (1) Vascular dementia with behavioral disturbance Current Visit: Yes Status: Acute Plan to address problem: For prompt, verbal redirection, benzodiazepine therapy as clinic indicated. (2) Cerebral atherosclerosis Current Visit: Yes Status: Acute Plan to address problem: Risk factor reduction, antiplatelet therapy as clinically indicated. (3) Major depression Current Visit: Yes Status: Acute Plan to address problem: Continue medical management, supportive care. (4) Generalized anxiety disorder Current Visit: Yes Status: Acute Plan to address problem: Benzodiazepine therapy as clinically indicated, supportive care (5) Advance care planning Current Visit: Yes Status: Acute Plan to address problem: Disease education data, care plan discussed, diagnoses discussed, prognosis di scussed, patient is full code, +30 minutes. (6) Preventative health care Current Visit: Yes Status: Acute Plan to address problem: Patient counseled regarding home safety, outpatient follow-up with primary care physician for all age and risk factor appropriate screening test. +30 minutes. Subjective Date of service: 05/21/22 Principal diagnosis: Dementia with Behavioral Disturbance Interval history: History Interval history: 71 YO Male with Vascular Dementia with behavioral disturbance, Cerebral Atherosclerosis admitted to [facility] psych unit for psychiatric stabilization. consult placed by Dr. Reid for medical management. Patient seen and evaluated in the recreation room. Patient appears to be at baseline level of cognition and function. No reported nursing events. Objective - Constitutional General appearance: Present: no acute distress, well-nourished - EENT Eyes: PERRL, EOM intact ENT: hearing intact, clear oral mucosa Ears: bilateral: normal - Neck Neck: supple, normal ROM - Respiratory Respiratory effort: normal Respiratory: bilateral: CTA - Breasts Breasts: normal - Cardiovascular Heart rate: 78 Rhythm: regular Heart Sounds: Present: S1 & S2. Absent: gallop, rub Extremities: pulses intact, No edema, normal color, Full ROM - Gastrointestinal General gastrointestinal: Present: soft, non-tender, non-distended, normal bowel sounds - Genitourinary Male genitourinary: normal - Integumentary Integumentary: clear, warm, dry - Musculoskeletal Musculoskeletal: 1, strength equal bilaterally - Neurologic Neurologic: moves all extremities - Psychiatric Psychiatric: memory intact, appropriate mood/affect, intact judgment & insight - Labs CBC & Chem 7: 05/15/22 20:45 05/15/22 20:45
[2022-05-21] MEDS: traZODone 50 MG TAB PO SCH (21:08)
[2022-05-21] MEDS: ASENAPINE MALEATE 5 MG SL SCH (21:08)
[2022-05-21] MEDS: MIRTAZAPINE 15 MG TAB PO SCH (21:08)
--- NOTE | 2022-05-22 09:37 | Progress Note ---
Subjective Date of service: 05/22/22 Principal diagnosis: Dementia with Behavioral Disturbance Subjective Comment: 05/22:The patient was seen today. He continues to be constricted and withdrawn. He reports sleep and appetite as good. per nurse " pt is alert and oriented to person, wanders the unit, entering into pts room, frequent redirection requires, slept through the night, no distress noted, will continue to monitor for safety." 05/21: The patient was seen today.He is confused and withdrawn. He reports sleep and appetite as good. No aggressive behavior reported. 05/20:The patient was seen at breakfast socializing with peer. patient is confused. He reports sleep and appetite as good. No aggressive behavior reported. 05/19: The patient was seen resting in bed. The patient presents with confusion, answering yes to all questions. No aggressive behavior reported. 05/18: The patient was seen eating breakfast. He is calm but not engaging with the provider. No aggressive behavior reported. REVIEW OF SYSTEMS Unable to assess MENTAL STATUS Unable to assess Assessment Dementia with behavioral disturbances Treatment Plan Patient will be admitted for inpatient psychiatric evaluation, medication adjustment and close monitoring The patient's behavior, mood, sleep and appetite will be closely monitored. Patient will be enrolled in individual and group therapeutic sessions and encouraged to attend. Patient will be provided with a safe and structured environment. Patient's physical health needs will be addressed by the Hospitalist. Hospitalist Consulted Labs including CBC, CMP, Lipid profile and Hemoglobin A1C ordered Social Assessment will be completed and the Theatrical Performer will work with patient and family to ensure a suitable and safe disposition Medication adjustment will be made as clinically indicated Continue Mirtazepine 7.5mg po qhs No changes made today Usual Wellness [facility]: -Trazodone 50mg po qhs - Start [place]-3 for brain health, reduce impulsivity, and as adjunctive treatment for mood disorder, continue upon discharge given overall benefits. The patient agreed on the treatment plan, understood the risk, benefit, alterna tive treatment, potential consequence of no treatment, and gave informed consent. Case staffed with Dr. Joy Medications and Allergies Medications and Allergies Allergies Allergy/AdvReac Type Severity Reaction Status Date / Time Penicillins Allergy Unknown Verified 05/14/22 23:31 Home Medications Medication Instructions Recorded Confirmed Last Taken Type Asenapine Maleate [Saphris] 5 mg SL HS 05/15/22 05/15/22 Unknown History Active Meds: Active Medications Mirtazapine (Mirtazapine 15 Mg Tab) 7.5 mg PO QHS [facility] Last Admin: 05/21/22 21:08 Dose: 7.5 mg Miscellaneous Medication (Asenapine Maleate [Saphris]) 5 mg SL [facility] Last Admin: 05/21/22 21:08 Dose: Not Given Trazodone HCl (Trazodone 50 Mg Tab) 50 mg PO QHS [facility] Last Admin: 05/21/22 21:08 Dose: 50 mg Results - Results Labs/Vitals: Laboratory Last Values WBC 7.7 K/mm3 (4.5-11.0) 05/15/22 20:45 RBC 4.82 M/mm3 (3.65-5.03) 05/15/22 20:45 Hgb 13.9 gm/dl (11.8-15.2) 05/15/22 20:45 Hct 42.0 % (35.5-45.6) 05/15/22 20:45 MCV 87 fl (84-94) 05/15/22 20:45 MCH 29 pg (28-32) 05/15/22 20:45 MCHC 33 % (32-34) 05/15/22 20:45 RDW 13.6 % (13.2-15.2) 05/15/22 20:45 Plt Count 317 K/mm3 (140-440) 05/15/22 20:45 Lymph % (Auto) 28.8 % (13.4-35.0) 05/15/22 20:45 [place] % (Auto) 5.9 % (0.0-7.3) 05/15/22 20:45 Eos % (Auto) 1.9 % (0.0-4.3) 05/15/22 20:45 Baso % (Auto) 0.9 % (0.0-1.8) 05/15/22 20:45 Lymph # (Auto) 2.2 K/mm3 (1.2-5.4) 05/15/22 20:45 [place] # (Auto) 0.5 K/mm3 (0.0-0.8) 05/15/22 20:45 Eos # (Auto) 0.1 K/mm3 (0.0-0.4) 05/15/22 20:45 Baso # (Auto) 0.1 K/mm3 (0.0-0.1) 05/15/22 20:45 Seg Neutrophils % 62.5 % (40.0-70.0) 05/15/22 20:45 Seg Neutrophils # 4.8 K/mm3 (1.8-7.7) 05/15/22 20:45 Sodium 140 mmol/L (137-145) 05/15/22 20:45 Potassium 3.7 mmol/L (3.6-5.0) 05/15/22 20:45 Chloride 102.0 mmol/L (98-107) 05/15/22 20:45 Carbon Dioxide 28 mmol/L (22-30) 05/15/22 20:45 Anion Gap 14 mmol/L 05/15/22 20:45 BUN 11 mg/dL (9-20) 05/15/22 20:45 Creatinine 1.3 mg/dL (0.8-1.3) 05/15/22 20:45 Estimated GFR > 60 ml/min 05/15/22 20:45 BUN/Creatinine Ratio 8 % 05/15/22 20:45 Glucose 84 mg/dL (75-100) 05/15/22 20:45 POC Glucose 80 mg/dL (70-105) 05/16/22 11:43 Hemoglobin A1c 5.6 % (4-6) 05/15/22 20:45 Calcium 9.2 mg/dL (8.4-10.2) 05/15/22 20:45 Total Bilirubin 0.50 mg/dL (0.1-1.2) 05/15/22 20:45 AST 18 units/L (5-40) 05/15/22 20:45 ALT 12 units/L (7-56) 05/15/22 20:45 Alkaline Phosphatase 61 units/L (35-129) 05/15/22 20:45 Total Protein 6.7 g/dL (6.3-8.2) 05/15/22 20:45 Albumin 4.0 g/dL (3.9-5) 05/15/22 20:45 Albumin/Globulin Ratio 1.5 % 05/15/22 20:45 Triglycerides 89 mg/dL (2-149) 05/15/22 20:45 Cholesterol 149 mg/dL (50-199) 05/15/22 20:45 LDL Cholesterol Direct 81 mg/dL (50-130) 05/15/22 20:45 HDL Cholesterol 60 mg/dL (40-59) H 05/15/22 20:45 Cholesterol/HDL Ratio 2.48 % 05/15/22 20:45 TSH 1.590 mlU/mL (0.270-4.200) 05/15/22 20:45 Last Vital Signs Temp 97.8 F 05/21/22 20:23 Pulse 59 L 05/21/22 20:23 Resp 18 05/21/22 20:23 BP 136/89 05/21/22 20:23 Pulse Ox 99 05/21/22 20:23
[2022-05-22] MEDS: MIRTAZAPINE 15 MG TAB PO SCH (21:47)
[2022-05-22] MEDS: traZODone 50 MG TAB PO SCH (21:47)
[2022-05-22] MEDS: ASENAPINE MALEATE 5 MG SL SCH (22:15)
--- NOTE | 2022-05-23 07:47 | Progress Note ---
Assessment and Plan Assessment and Plan - Patient Problems (1) Vascular dementia with behavioral disturbance Current Visit: Yes Status: Acute Plan to address problem: For prompt, verbal redirection, benzodiazepine therapy as clinic indicated. (2) Cerebral atherosclerosis Current Visit: Yes Status: Acute Plan to address problem: Risk factor reduction, antiplatelet therapy as clinically indicated. (3) Major depression Current Visit: Yes Status: Acute Plan to address problem: Continue medical management, supportive care. (4) Generalized anxiety disorder Current Visit: Yes Status: Acute Plan to address problem: Benzodiazepine therapy as clinically indicated, supportive care (5) Advance care planning Current Visit: Yes Status: Acute Plan to address problem: Disease education data, care plan discussed, diagnoses discussed, prognosis di scussed, patient is full code, +30 minutes. (6) Preventative health care Current Visit: Yes Status: Acute Plan to address problem: Patient counseled regarding home safety, outpatient follow-up with primary care physician for all age and risk factor appropriate screening test. +30 minutes. Subjective Date of service: 05/22/22 Principal diagnosis: Dementia with Behavioral Disturbance Interval history: History Interval history: 71 YO Male with Vascular Dementia with behavioral disturbance, Cerebral Atherosclerosis admitted to [facility] psych unit for psychiatric stabilization. consult placed by Dr. Reid for medical management. Patient seen and evaluated in the recreation room. Patient appears to be at baseline level of cognition and function. No reported nursing events. Objective - Constitutional General appearance: Present: no acute distress, well-nourished - EENT Eyes: PERRL, EOM intact ENT: hearing intact, clear oral mucosa Ears: bilateral: normal - Neck Neck: supple, normal ROM - Respiratory Respiratory effort: normal Respiratory: bilateral: CTA - Breasts Breasts: normal - Cardiovascular Heart rate: 74 Rhythm: regular Heart Sounds: Present: S1 & S2. Absent: gallop, rub Extremities: pulses intact, No edema, normal color, Full ROM - Gastrointestinal General gastrointestinal: Present: soft, non-tender, non-distended, normal bowel sounds - Genitourinary Male genitourinary: normal - Integumentary Integumentary: clear, warm, dry - Musculoskeletal Musculoskeletal: 1, strength equal bilaterally - Neurologic Neurologic: moves all extremities - Psychiatric Psychiatric: memory intact, appropriate mood/affect, intact judgment & insight - Labs CBC & Chem 7: 05/15/22 20:45 05/15/22 20:45
--- NOTE | 2022-05-23 09:34 | Progress Note ---
Subjective Date of service: 05/23/22 Principal diagnosis: Dementia with Behavioral Disturbance Subjective Comment: 05/23:The patient was seen today. The patient is confused, wandering and requiring frequent redirection. No aggressive behavior reported. 05/22:The patient was seen today. He continues to be constricted and withdrawn. He reports sleep and appetite as good. per nurse " pt is alert and oriented to person, wanders the unit, entering into pts room, frequent redirection requires, slept through the night, no distress noted, will continue to monitor for safety." 05/21: The patient was seen today.He is confused and withdrawn. He reports sleep and appetite as good. No aggressive behavior reported. 05/20:The patient was seen at breakfast socializing with peer. patient is confused. He reports sleep and appetite as good. No aggressive behavior reported. 05/19: The patient was seen resting in bed. The patient presents with confusion, answering yes to all questions. No aggressive behavior reported. 05/18: The patient was seen eating breakfast. He is calm but not engaging with the provider. No aggressive behavior reported. REVIEW OF SYSTEMS Unable to assess MENTAL STATUS Unable to assess Assessment Dementia with behavioral disturbances Treatment Plan Patient will be admitted for inpatient psychiatric evaluation, medication adjustment and close monitoring The patient's behavior, mood, sleep and appetite will be closely monitored. Patient will be enrolled in individual and group therapeutic sessions and encouraged to attend. Patient will be provided with a safe and structured environment. Patient's physical health needs will be addressed by the Hospitalist. Hospitalist Consulted Labs including CBC, CMP, Lipid profile and Hemoglobin A1C ordered Social Assessment will be completed and the Potato Chip Sorter will work with patient and family to ensure a suitable and safe disposition Medication adjustment will be made as clinically indicated Continue Mirtazepine 5mg po qhs Risperidone 0.25mg po BID No changes made today Usual Wellness [facility]: -Trazodone 50mg po qhs - Start [place]-3 for brain health, reduce impulsivity, and as adjunctive treatment for mood disorder, continue upon discharge given overall benefits. The patient agreed on the treatment plan, understood the risk, benefit, alternative treatment, potential consequence of no treatment, and gave informed consent. Case staffed with Dr. Joy Medications and Allergies Medications and Allergies Allergies Allergy/AdvReac Type Severity Reaction Status Date / Time Penicillins Allergy Unknown Verified 05/14/22 23:31 Home Medications Medication Instructions Recorded Confirmed Last Taken Type Asenapine Maleate [Saphris] 5 mg SL HS 05/15/22 05/15/22 Unknown History Active Meds: Active Medications Hydroxyzine Pamoate (Hydroxyzine Pamoate 25 Mg Cap) 25 mg PO DAILY [facility] Mirtazapine (Mirtazapine 15 Mg Tab) 7.5 mg PO QHS [facility] Last Admin: 05/22/22 21:47 Dose: 7.5 mg Miscellaneous Medication (Asenapine Maleate [Saphris]) 5 mg SL [facility] Last Admin: 05/22/22 22:15 Dose: Not Given Trazodone HCl (Trazodone 50 Mg Tab) 50 mg PO QHS [facility] Last Admin: 05/22/22 21:47 Dose: 50 mg Results - Results Labs/Vitals: Laboratory Last Values WBC 7.7 K/mm3 (4.5-11.0) 05/15/22 20:45 RBC 4.82 M/mm3 (3.65-5.03) 05/15/22 20:45 Hgb 13.9 gm/dl (11.8-15.2) 05/15/22 20:45 Hct 42.0 % (35.5-45.6) 05/15/22 20:45 MCV 87 fl (84-94) 05/15/22 20:45 MCH 29 pg (28-32) 05/15/22 20:45 MCHC 33 % (32-34) 05/15/22 20:45 RDW 13.6 % (13.2-15.2) 05/15/22 20:45 Plt Count 317 K/mm3 (140-440) 05/15/22 20:45 Lymph % (Auto) 28.8 % (13.4-35.0) 05/15/22 20:45 [place] % (Auto) 5.9 % (0.0-7.3) 05/15/22 20:45 Eos % (Auto) 1.9 % (0.0-4.3) 05/15/22 20:45 Baso % (Auto) 0.9 % (0.0-1.8) 05/15/22 20:45 Lymph # (Auto) 2.2 K/mm3 (1.2-5.4) 05/15/22 20:45 [place] # (Auto) 0.5 K/mm3 (0.0-0.8) 05/15/22 20:45 Eos # (Auto) 0.1 K/mm3 (0.0-0.4) 05/15/22 20:45 Baso # (Auto) 0.1 K/mm3 (0.0-0.1) 05/15/22 20:45 Seg Neutrophils % 62.5 % (40.0-70.0) 05/15/22 20:45 Seg Neutrophils # 4.8 K/mm3 (1.8-7.7) 05/15/22 20:45 Sodium 140 mmol/L (137-145) 05/15/22 20:45 Potassium 3.7 mmol/L (3.6-5.0) 05/15/22 20:45 Chloride 102.0 mmol/L (98-107) 05/15/22 20:45 Carbon Dioxide 28 mmol/L (22-30) 05/15/22 20:45 Anion Gap 14 mmol/L 05/15/22 20:45 BUN 11 mg/dL (9-20) 05/15/22 20:45 Creatinine 1.3 mg/dL (0.8-1.3) 05/15/22 20:45 Estimated GFR > 60 ml/min 05/15/22 20:45 BUN/Creatinine Ratio 8 % 05/15/22 20:45 Glucose 84 mg/dL (75-100) 05/15/22 20:45 POC Glucose 80 mg/dL (70-105) 05/16/22 11:43 Hemoglobin A1c 5.6 % (4-6) 05/15/22 20:45 Calcium 9.2 mg/dL (8.4-10.2) 05/15/22 20:45 Total Bilirubin 0.50 mg/dL (0.1-1.2) 05/15/22 20:45 AST 18 units/L (5-40) 05/15/22 20:45 ALT 12 units/L (7-56) 05/15/22 20:45 Alkaline Phosphatase 61 units/L (35-129) 05/15/22 20:45 Total Protein 6.7 g/dL (6.3-8.2) 05/15/22 20:45 Albumin 4.0 g/dL (3.9-5) 05/15/22 20:45 Albumin/Globulin Ratio 1.5 % 05/15/22 20:45 Triglycerides 89 mg/dL (2-149) 05/15/22 20:45 Cholesterol 149 mg/dL (50-199) 05/15/22 20:45 LDL Cholesterol Direct 81 mg/dL (50-130) 05/15/22 20:45 HDL Cholesterol 60 mg/dL (40-59) H 05/15/22 20:45 Cholesterol/HDL Ratio 2.48 % 05/15/22 20:45 TSH 1.590 mlU/mL (0.270-4.200) 05/15/22 20:45 Last Vital Signs Temp 97.5 F L 05/22/22 19:12 Pulse 59 L 05/22/22 19:12 Resp 18 05/22/22 19:12 BP 118/75 05/22/22 19:12 Pulse Ox 99 05/22/22 19:12
[2022-05-23] MEDS: hydrOXYzine PAMOATE 25 MG CAP PO SCH (12:03)
[2022-05-23] MEDS: risperiDONE 0.25 MG TAB PO SCH ×2 (15:25→21:14)
[2022-05-23] MEDS: MIRTAZAPINE 15 MG TAB PO SCH (21:14)
[2022-05-23] MEDS: traZODone 50 MG TAB PO SCH (21:14)
[2022-05-23] MEDS: ASENAPINE MALEATE 5 MG SL SCH (21:15)
[2022-05-24] MEDS: hydrOXYzine PAMOATE 25 MG CAP PO SCH (09:04)
[2022-05-24] MEDS: risperiDONE 0.25 MG TAB PO SCH ×2 (09:04→21:17)
--- NOTE | 2022-05-24 09:19 | Progress Note ---
Subjective Date of service: 05/24/22 Principal diagnosis: Dementia with Behavioral Disturbance Subjective Comment: 05/24: The patient was seen today. He continues to be pleasantly confused, wandering and needing redirection. No aggressive behavior reported. No changes made today. 05/23:The patient was seen today. The patient is confused, wandering and requiring frequent redirection. No aggressive behavior reported. 05/22:The patient was seen today. He continues to be constricted and withdrawn. He reports sleep and appetite as good. per nurse " pt is alert and oriented to person, wanders the unit, entering into pts room, frequent redirection requires, slept through the night, no distress noted, will continue to monitor for safety." 05/21: The patient was seen today.He is confused and withdrawn. He reports sleep and appetite as good. No aggressive behavior reported. 05/20:The patient was seen at breakfast socializing with peer. patient is confused. He reports sleep and appetite as good. No aggressive behavior reported. 05/19: The patient was seen resting in bed. The patient presents with confusion, answering yes to all questions. No aggressive behavior reported. 05/18: The patient was seen eating breakfast. He is calm but not engaging with the provider. No aggressive behavior reported. REVIEW OF SYSTEMS Unable to assess MENTAL STATUS Unable to assess Assessment Dementia with behavioral disturbances Treatment Plan Patient will be admitted for inpatient psychiatric evaluation, medication adjustment and close monitoring The patient's behavior, mood, sleep and appetite will be closely monitored. Patient will be enrolled in individual and group therapeutic sessions and encouraged to attend. Patient will be provided with a safe and structured environment. Patient's physical health needs will be addressed by the Hospitalist. Hospitalist Consulted Labs including CBC, CMP, Lipid profile and Hemoglobin A1C ordered Social Assessment will be completed and the Emergency Man will work with patient and family to ensure a suitable and safe disposition Medication adjustment will be made as clinically indicated Continue Mirtazepine 5mg po qhs Continue Risperidone 0.25mg po BID No changes made today Usual Wellness [facility]/Preservation: -Trazodone 50mg po qhs - Start [place]-3 for brain health, reduce impulsivity, and as adjunctive treatment for mood disorder, continue upon discharge given overall benefits. The patient agreed on the treatment plan, understood the risk, benefit, alternative treatment, potential consequence of no treatment, and gave informed consent. Case staffed with Dr. Joy Medications and Allergies Medications and Allergies Allergies Allergy/AdvReac Type Severity Reaction Status Date / Time Penicillins Allergy Unknown Verified 05/14/22 23:31 Home Medications Medication Instructions Recorded Confirmed Last Taken Type Asenapine Maleate [Saphris] 5 mg SL HS 05/15/22 05/15/22 Unknown History Active Meds: Active Medications Hydroxyzine Pamoate (Hydroxyzine Pamoate 25 Mg Cap) 25 mg PO DAILY [facility] Last Admin: 05/24/22 09:04 Dose: 25 mg Mirtazapine (Mirtazapine 15 Mg Tab) 5 mg PO QHS [facility] Last Admin: 05/23/22 21:14 Dose: 5 mg Miscellaneous Medication (Asenapine Maleate [Saphris]) 5 mg SL [facility] Last Admin: 05/23/22 21:15 Dose: Not Given Risperidone (Risperidone 0.25 Mg Tab) 0.25 mg PO BID [facility] Last Admin: 05/24/22 09:04 Dose: 0.25 mg Trazodone HCl (Trazodone 50 Mg Tab) 50 mg PO QHS [facility] Last Admin: 05/23/22 21:14 Dose: 50 mg Results - Results Labs/Vitals: Laboratory Last Values WBC 7.7 K/mm3 (4.5-11.0) 05/15/22 20:45 RBC 4.82 M/mm3 (3.65-5.03) 05/15/22 20:45 Hgb 13.9 gm/dl (11.8-15.2) 05/15/22 20:45 Hct 42.0 % (35.5-45.6) 05/15/22 20:45 MCV 87 fl (84-94) 05/15/22 20:45 MCH 29 pg (28-32) 05/15/22 20:45 MCHC 33 % (32-34) 05/15/22 20:45 RDW 13.6 % (13.2-15.2) 05/15/22 20:45 Plt Count 317 K/mm3 (140-440) 05/15/22 20:45 Lymph % (Auto) 28.8 % (13.4-35.0) 05/15/22 20:45 [place] % (Auto) 5.9 % (0.0-7.3) 05/15/22 20:45 Eos % (Auto) 1.9 % (0.0-4.3) 05/15/22 20:45 Baso % (Auto) 0.9 % (0.0-1.8) 05/15/22 20:45 Lymph # (Auto) 2.2 K/mm3 (1.2-5.4) 05/15/22 20:45 [place] # (Auto) 0.5 K/mm3 (0.0-0.8) 05/15/22 20:45 Eos # (Auto) 0.1 K/mm3 (0.0-0.4) 05/15/22 20:45 Baso # (Auto) 0.1 K/mm3 (0.0-0.1) 05/15/22 20:45 Seg Neutrophils % 62.5 % (40.0-70.0) 05/15/22 20:45 Seg Neutrophils # 4.8 K/mm3 (1.8-7.7) 05/15/22 20:45 Sodium 140 mmol/L (137-145) 05/15/22 20:45 Potassium 3.7 mmol/L (3.6-5.0) 05/15/22 20:45 Chloride 102.0 mmol/L (98-107) 05/15/22 20:45 Carbon Dioxide 28 mmol/L (22-30) 05/15/22 20:45 Anion Gap 14 mmol/L 05/15/22 20:45 BUN 11 mg/dL (9-20) 05/15/22 20:45 Creatinine 1.3 mg/dL (0.8-1.3) 05/15/22 20:45 Estimated GFR > 60 ml/min 05/15/22 20:45 BUN/Creatinine Ratio 8 % 05/15/22 20:45 Glucose 84 mg/dL (75-100) 05/15/22 20:45 POC Glucose 80 mg/dL (70-105) 05/16/22 11:43 Hemoglobin A1c 5.6 % (4-6) 05/15/22 20:45 Calcium 9.2 mg/dL (8.4-10.2) 05/15/22 20:45 Total Bilirubin 0.50 mg/dL (0.1-1.2) 05/15/22 20:45 AST 18 units/L (5-40) 05/15/22 20:45 ALT 12 units/L (7-56) 05/15/22 20:45 Alkaline Phosphatase 61 units/L (35-129) 05/15/22 20:45 Total Protein 6.7 g/dL (6.3-8.2) 05/15/22 20:45 Albumin 4.0 g/dL (3.9-5) 05/15/22 20:45 Albumin/Globulin Ratio 1.5 % 05/15/22 20:45 Triglycerides 89 mg/dL (2-149) 05/15/22 20:45 Cholesterol 149 mg/dL (50-199) 05/15/22 20:45 LDL Cholesterol Direct 81 mg/dL (50-130) 05/15/22 20:45 HDL Cholesterol 60 mg/dL (40-59) H 05/15/22 20:45 Cholesterol/HDL Ratio 2.48 % 05/15/22 20:45 TSH 1.590 mlU/mL (0.270-4.200) 05/15/22 20:45 Last Vital Signs Temp 98.4 F 05/23/22 19:00 Pulse 60 05/23/22 19:00 Resp 18 05/23/22 19:00 BP 113/76 05/23/22 19:00 Pulse Ox 100 05/23/22 19:00
[2022-05-24] MEDS: traZODone 50 MG TAB PO SCH (21:16)
[2022-05-24] MEDS: MIRTAZAPINE 15 MG TAB PO SCH (21:17)
[2022-05-24] MEDS: ASENAPINE MALEATE 5 MG SL SCH (21:18)
[2022-05-25] MEDS: hydrOXYzine PAMOATE 25 MG CAP PO SCH (09:07)
[2022-05-25] MEDS: risperiDONE 0.25 MG TAB PO SCH ×2 (09:07→21:46)
--- NOTE | 2022-05-25 10:53 | Progress Note ---
Subjective Date of service: 05/25/22 Principal diagnosis: Dementia with Behavioral Disturbance Subjective Comment: The patient was seen today. He is in the dayroom eating. He is confused. He is mumbling. The patient is calm and cooperative. He will discharge Saturday once outpatient resources are in place. REVIEW OF SYSTEMS Unable to assess MENTAL STATUS Unable to assess Treatment Plan Patient will be admitted for inpatient psychiatric evaluation, medication adjustment and close monitoring The patient's behavior, mood, sleep and appetite will be closely monitored. Patient will be enrolled in individual and group therapeutic sessions and encouraged to attend. Patient will be provided with a safe and structured environment. Patient's physical health needs will be addressed by the Hospitalist. Hospitalist Consulted Labs including CBC, CMP, Lipid profile and Hemoglobin A1C ordered Social Assessment will be completed and the Flight Operations Inspector will work with patient and family to ensure a suitable and safe disposition Medication adjustment will be made as clinically indicated Continue current regimen Usual Wellness Taoist/Preservation: -Trazodone 50mg po qhs The patient agreed on the treatment plan, understood the risk, benefit, alternative treatment, potential consequence of no treatment, and gave informed consent. Case staffed with Dr. Joy Medications and Allergies Allergies Allergy/AdvReac Type Severity Reaction Status Date / Time Penicillins Allergy Unknown Verified 05/14/22 23:31 Home Medications Medication Instructions Recorded Confirmed Last Taken Type Asenapine Maleate [Saphris] 5 mg SL HS 05/15/22 05/15/22 Unknown History Active Meds: Active Medications Hydroxyzine Pamoate (Hydroxyzine Pamoate 25 Mg Cap) 25 mg PO DAILY [facility] Last Admin: 05/25/22 09:07 Dose: 25 mg Mirtazapine (Mirtazapine 15 Mg Tab) 5 mg PO QHS [facility] Last Admin: 05/24/22 21:17 Dose: 5 mg Miscellaneous Medication (Asenapine Maleate [Saphris]) 5 mg SL [facility] Last Admin: 05/24/22 21:18 Dose: Not Given Risperidone (Risperidone 0.25 Mg Tab) 0.25 mg PO BID [facility] Last Admin: 05/25/22 09:07 Dose: 0.25 mg Trazodone HCl (Trazodone 50 Mg Tab) 50 mg PO QHS [facility] Last Admin: 05/24/22 21:16 Dose: 50 mg Results - Results Labs/Vitals: Laboratory Last Values WBC 7.7 K/mm3 (4.5-11.0) 05/15/22 20:45 RBC 4.82 M/mm3 (3.65-5.03) 05/15/22 20:45 Hgb 13.9 gm/dl (11.8-15.2) 05/15/22 20:45 Hct 42.0 % (35.5-45.6) 05/15/22 20:45 MCV 87 fl (84-94) 05/15/22 20:45 MCH 29 pg (28-32) 05/15/22 20:45 MCHC 33 % (32-34) 05/15/22 20:45 RDW 13.6 % (13.2-15.2) 05/15/22 20:45 Plt Count 317 K/mm3 (140-440) 05/15/22 20:45 Lymph % (Auto) 28.8 % (13.4-35.0) 05/15/22 20:45 [place] % (Auto) 5.9 % (0.0-7.3) 05/15/22 20:45 Eos % (Auto) 1.9 % (0.0-4.3) 05/15/22 20:45 Baso % (Auto) 0.9 % (0.0-1.8) 05/15/22 20:45 Lymph # (Auto) 2.2 K/mm3 (1.2-5.4) 05/15/22 20:45 [place] # (Auto) 0.5 K/mm3 (0.0-0.8) 05/15/22 20:45 Eos # (Auto) 0.1 K/mm3 (0.0-0.4) 05/15/22 20:45 Baso # (Auto) 0.1 K/mm3 (0.0-0.1) 05/15/22 20:45 Seg Neutrophils % 62.5 % (40.0-70.0) 05/15/22 20:45 Seg Neutrophils # 4.8 K/mm3 (1.8-7.7) 05/15/22 20:45 Sodium 140 mmol/L (137-145) 05/15/22 20:45 Potassium 3.7 mmol/L (3.6-5.0) 05/15/22 20:45 Chloride 102.0 mmol/L (98-107) 05/15/22 20:45 Carbon Dioxide 28 mmol/L (22-30) 05/15/22 20:45 Anion Gap 14 mmol/L 05/15/22 20:45 BUN 11 mg/dL (9-20) 05/15/22 20:45 Creatinine 1.3 mg/dL (0.8-1.3) 05/15/22 20:45 Estimated GFR > 60 ml/min 05/15/22 20:45 BUN/Creatinine Ratio 8 % 05/15/22 20:45 Glucose 84 mg/dL (75-100) 05/15/22 20:45 POC Glucose 80 mg/dL (70-105) 05/16/22 11:43 Hemoglobin A1c 5.6 % (4-6) 05/15/22 20:45 Calcium 9.2 mg/dL (8.4-10.2) 05/15/22 20:45 Total Bilirubin 0.50 mg/dL (0.1-1.2) 05/15/22 20:45 AST 18 units/L (5-40) 05/15/22 20:45 ALT 12 units/L (7-56) 05/15/22 20:45 Alkaline Phosphatase 61 units/L (35-129) 05/15/22 20:45 Total Protein 6.7 g/dL (6.3-8.2) 05/15/22 20:45 Albumin 4.0 g/dL (3.9-5) 05/15/22 20:45 Albumin/Globulin Ratio 1.5 % 05/15/22 20:45 Triglycerides 89 mg/dL (2-149) 05/15/22 20:45 Cholesterol 149 mg/dL (50-199) 05/15/22 20:45 LDL Cholesterol Direct 81 mg/dL (50-130) 05/15/22 20:45 HDL Cholesterol 60 mg/dL (40-59) H 05/15/22 20:45 Cholesterol/HDL Ratio 2.48 % 05/15/22 20:45 TSH 1.590 mlU/mL (0.270-4.200) 05/15/22 20:45 Last Vital Signs Temp 97.9 F 05/25/22 00:51 Pulse 61 05/25/22 00:51 Resp 18 05/25/22 00:51 BP 135/78 05/25/22 00:51 Pulse Ox 99 08/12/22 00:51
[2022-05-25] MEDS: ASENAPINE MALEATE 5 MG SL SCH (21:43)
[2022-05-25] MEDS: traZODone 50 MG TAB PO SCH (21:45)
[2022-05-25] MEDS: MIRTAZAPINE 15 MG TAB PO SCH (21:45)
[2022-05-26] MEDS: hydrOXYzine PAMOATE 25 MG CAP PO SCH ×2 (08:35→10:28)
[2022-05-26] MEDS: risperiDONE 0.25 MG TAB PO SCH ×3 (08:35→21:47)
--- NOTE | 2022-05-26 08:49 | Progress Note ---
Subjective Date of service: 05/26/22 Principal diagnosis: Dementia with Behavioral Disturbance Subjective Comment: The patient was seen today. He sitting in the dayroom. The patient is confused, but pleasant. He is smiling but he doesn't engage in the evaluation. He awaiting placement. REVIEW OF SYSTEMS Unable to assess MENTAL STATUS Unable to assess Treatment Plan Patient will be admitted for inpatient psychiatric evaluation, medication adjustment and close monitoring The patient's behavior, mood, sleep and appetite will be closely monitored. Patient will be enrolled in individual and group therapeutic sessions and encouraged to attend. Patient will be provided with a safe and structured environment. Patient's physical health needs will be addressed by the Hospitalist. Hospitalist Consulted Labs including CBC, CMP, Lipid profile and Hemoglobin A1C ordered Social Assessment will be completed and the Bobbin Inspector will work with patient and family to ensure a suitable and safe disposition Medication adjustment will be made as clinically indicated Continue current regimen Usual Wellness Oriental Orthodox/Preservation: -Trazodone 50mg po qhs The patient agreed on the treatment plan, understood the risk, benefit, alternative treatment, potential consequence of no treatment, and gave informed consent. Case staffed with Dr. Joy Medications and Allergies Allergies Allergy/AdvReac Type Severity Reaction Status Date / Time Penicillins Allergy Unknown Verified 05/14/22 23:31 Home Medications Medication Instructions Recorded Confirmed Last Taken Type Asenapine Maleate [Saphris] 5 mg SL HS 05/15/22 05/15/22 Unknown History Active Meds: Active Medications Hydroxyzine Pamoate (Hydroxyzine Pamoate 25 Mg Cap) 25 mg PO DAILY [facility] Last Admin: 05/26/22 08:35 Dose: 25 mg Mirtazapine (Mirtazapine 15 Mg Tab) 5 mg PO QHS [facility] Last Admin: 05/25/22 21:45 Dose: 5 mg Miscellaneous Medication (Asenapine Maleate [Saphris]) [address] [facility] Last Admin: 05/25/22 21:43 Dose: Not Given Risperidone (Risperidone 0.25 Mg Tab) 0.25 mg PO BID [facility] Last Admin: 05/26/22 08:35 Dose: 0.25 mg Trazodone HCl (Trazodone 50 Mg Tab) 50 mg PO QHS [facility] Last Admin: 05/25/22 21:45 Dose: 50 mg Results - Results Labs/Vitals: Laboratory Last Values WBC 7.7 K/mm3 (4.5-11.0) 05/15/22 20:45 RBC 4.82 M/mm3 (3.65-5.03) 05/15/22 20:45 Hgb 13.9 gm/dl (11.8-15.2) 05/15/22 20:45 Hct 42.0 % (35.5-45.6) 05/15/22 20:45 MCV 87 fl (84-94) 05/15/22 20:45 MCH 29 pg (28-32) 05/15/22 20:45 MCHC 33 % (32-34) 05/15/22 20:45 RDW 13.6 % (13.2-15.2) 05/15/22 20:45 Plt Count 317 K/mm3 (140-440) 05/15/22 20:45 Lymph % (Auto) 28.8 % (13.4-35.0) 05/15/22 20:45 [place] % (Auto) 5.9 % (0.0-7.3) 05/15/22 20:45 Eos % (Auto) 1.9 % (0.0-4.3) 05/15/22 20:45 Baso % (Auto) 0.9 % (0.0-1.8) 05/15/22 20:45 Lymph # (Auto) 2.2 K/mm3 (1.2-5.4) 05/15/22 20:45 [place] # (Auto) 0.5 K/mm3 (0.0-0.8) 05/15/22 20:45 Eos # (Auto) 0.1 K/mm3 (0.0-0.4) 05/15/22 20:45 Baso # (Auto) 0.1 K/mm3 (0.0-0.1) 05/15/22 20:45 Seg Neutrophils % 62.5 % (40.0-70.0) 05/15/22 20:45 Seg Neutrophils # 4.8 K/mm3 (1.8-7.7) 05/15/22 20:45 Sodium 140 mmol/L (137-145) 05/15/22 20:45 Potassium 3.7 mmol/L (3.6-5.0) 05/15/22 20:45 Chloride 102.0 mmol/L (98-107) 05/15/22 20:45 Carbon Dioxide 28 mmol/L (22-30) 05/15/22 20:45 Anion Gap 14 mmol/L 05/15/22 20:45 BUN 11 mg/dL (9-20) 05/15/22 20:45 Creatinine 1.3 mg/dL (0.8-1.3) 05/15/22 20:45 Estimated GFR > 60 ml/min 05/15/22 20:45 BUN/Creatinine Ratio 8 % 05/15/22 20:45 Glucose 84 mg/dL (75-100) 05/15/22 20:45 POC Glucose 80 mg/dL (70-105) 05/16/22 11:43 Hemoglobin A1c 5.6 % (4-6) 05/15/22 20:45 Calcium 9.2 mg/dL (8.4-10.2) 05/15/22 20:45 Total Bilirubin 0.50 mg/dL (0.1-1.2) 05/15/22 20:45 AST 18 units/L (5-40) 05/15/22 20:45 ALT 12 units/L (7-56) 05/15/22 20:45 Alkaline Phosphatase 61 units/L (35-129) 05/15/22 20:45 Total Protein 6.7 g/dL (6.3-8.2) 05/15/22 20:45 Albumin 4.0 g/dL (3.9-5) 05/15/22 20:45 Albumin/Globulin Ratio 1.5 % 05/15/22 20:45 Triglycerides 89 mg/dL (2-149) 05/15/22 20:45 Cholesterol 149 mg/dL (50-199) 05/15/22 20:45 LDL Cholesterol Direct 81 mg/dL (50-130) 05/15/22 20:45 HDL Cholesterol 60 mg/dL (40-59) H 05/15/22 20:45 Cholesterol/HDL Ratio 2.48 % 05/15/22 20:45 TSH 1.590 mlU/mL (0.270-4.200) 05/15/22 20:45 Last Vital Signs Temp 98.1 F 05/26/22 07:09 Pulse 50 L 05/26/22 07:09 Resp 18 05/26/22 07:09 BP 137/83 05/26/22 07:09 Pulse Ox 100 05/26/22 07:09
[2022-05-26] MEDS: traZODone 50 MG TAB PO SCH (21:47)
[2022-05-26] MEDS: MIRTAZAPINE 15 MG TAB PO SCH (21:47)
[2022-05-26] MEDS: ASENAPINE MALEATE 5 MG SL SCH (21:48)
[2022-05-27] MEDS: risperiDONE 0.25 MG TAB PO SCH ×2 (10:36→21:47)
[2022-05-27] MEDS: hydrOXYzine PAMOATE 25 MG CAP PO SCH (10:36)
--- NOTE | 2022-05-27 11:45 | Progress Note ---
Assessment and Plan - Patient Problems (1) Vascular dementia with behavioral disturbance Current Visit: Yes Status: Acute Plan to address problem: For prompt, verbal redirection, benzodiazepine therapy as clinic indicated. (2) Cerebral atherosclerosis Current Visit: Yes Status: Acute Plan to address problem: Risk factor reduction, antiplatelet therapy as clinically indicated. (3) Major depression Current Visit: Yes Status: Acute Plan to address problem: Continue medical management, supportive care. (4) Generalized anxiety disorder Current Visit: Yes Status: Acute Plan to address problem: Benzodiazepine therapy as clinically indicated, supportive care (5) Advance care planning Current Visit: Yes Status: Acute Plan to address problem: Disease education data, care plan discussed, diagnoses discussed, prognosis discussed, patient is full code, +30 minutes. (6) Preventative health care Current Visit: Yes Status: Acute Plan to address problem: Patient counseled regarding home safety, outpatient follow-up with primary care physician for all age and risk factor appropriate screening test. +30 minutes. History Interval history: 71 YO Male with Vascular Dementia with behavioral disturbance, Cerebral Atherosclerosis admitted to [facility] psych unit for psychiatric stabilization. consult placed by Dr. Reid for medical management. Patient seen and evaluated in the recreation room. Patient appears to be at baseline level of cognition and function. No reported nursing events. Hospitalist Physical - Constitutional Vitals: Temp Pulse Resp BP Pulse Ox 98.3 F 65 18 140/98 99 05/26/22 20:50 05/26/22 20:50 05/26/22 20:50 05/26/22 20:50 05/26/22 20:50 General appearance: Present: no acute distress, well-nourished - EENT Eyes: Present: PERRL ENT: hearing decreased - Neck Neck: Present: supple - Respiratory Respiratory effort: normal Respiratory: bilateral: diminished - Cardiovascular Rhythm: regular Heart Sounds: Present: S1 & S2 - Extremities Extremities: no ischemia Peripheral Pulses: within normal limits - Abdominal General gastrointestinal: soft, non-tender, non-distended - Integumentary Integumentary: Present: clear, dry - Psychiatric Psychiatric: cooperative - Neurologic Neurologic: CNII-XII intact Results - Labs CBC & Chem 7: 05/15/22 20:45 05/15/22 20:45 Labs: Laboratory Last Values WBC 7.7 K/mm3 (4.5-11.0) 05/15/22 20:45 RBC 4.82 M/mm3 (3.65-5.03) 05/15/22 20:45 Hgb 13.9 gm/dl (11.8-15.2) 05/15/22 20:45 Hct 42.0 % (35.5-45.6) 05/15/22 20:45 MCV 87 fl (84-94) 05/15/22 20:45 MCH 29 pg (28-32) 05/15/22 20:45 MCHC 33 % (32-34) 05/15/22 20:45 RDW 13.6 % (13.2-15.2) 05/15/22 20:45 Plt Count 317 K/mm3 (140-440) 05/15/22 20:45 Lymph % (Auto) 28.8 % (13.4-35.0) 05/15/22 20:45 [place] % (Auto) 5.9 % (0.0-7.3) 05/15/22 20:45 Eos % (Auto) 1.9 % (0.0-4.3) 05/15/22 20:45 Baso % (Auto) 0.9 % (0.0-1.8) 05/15/22 20:45 Lymph # (Auto) 2.2 K/mm3 (1.2-5.4) 05/15/22 20:45 [place] # (Auto) 0.5 K/mm3 (0.0-0.8) 05/15/22 20:45 Eos # (Auto) 0.1 K/mm3 (0.0-0.4) 05/15/22 20:45 Baso # (Auto) 0.1 K/mm3 (0.0-0.1) 05/15/22 20:45 Seg Neutrophils % 62.5 % (40.0-70.0) 05/15/22 20:45 Seg Neutrophils # 4.8 K/mm3 (1.8-7.7) 05/15/22 20:45 Sodium 140 mmol/L (137-145) 05/15/22 20:45 Potassium 3.7 mmol/L (3.6-5.0) 05/15/22 20:45 Chloride 102.0 mmol/L (98-107) 05/15/22 20:45 Carbon Dioxide 28 mmol/L (22-30) 05/15/22 20:45 Anion Gap 14 mmol/L 05/15/22 20:45 BUN 11 mg/dL (9-20) 05/15/22 20:45 Creatinine 1.3 mg/dL (0.8-1.3) 05/15/22 20:45 Estimated GFR > 60 ml/min 05/15/22 20:45 BUN/Creatinine Ratio 8 % 05/15/22 20:45 Glucose 84 mg/dL (75-100) 05/15/22 20:45 POC Glucose 80 mg/dL (70-105) 05/16/22 11:43 Hemoglobin A1c 5.6 % (4-6) 05/15/22 20:45 Calcium 9.2 mg/dL (8.4-10.2) 05/15/22 20:45 Total Bilirubin 0.50 mg/dL (0.1-1.2) 05/15/22 20:45 AST 18 units/L (5-40) 05/15/22 20:45 ALT 12 units/L (7-56) 05/15/22 20:45 Alkaline Phosphatase 61 units/L (35-129) 05/15/22 20:45 Total Protein 6.7 g/dL (6.3-8.2) 05/15/22 20:45 Albumin 4.0 g/dL (3.9-5) 05/15/22 20:45 Albumin/Globulin Ratio 1.5 % 05/15/22 20:45 Triglycerides 89 mg/dL (2-149) 05/15/22 20:45 Cholesterol 149 mg/dL (50-199) 05/15/22 20:45 LDL Cholesterol Direct 81 mg/dL (50-130) 05/15/22 20:45 HDL Cholesterol 60 mg/dL (40-59) H 05/15/22 20:45 Cholesterol/HDL Ratio 2.48 % 05/15/22 20:45 TSH 1.590 mlU/mL (0.270-4.200) 05/15/22 20:45 Bailey/IV: Voiding Method Incontinent Active Medications - Current Medications Current Medications: Generic Name Dose Route Start Last Admin Trade Name Freq PRN Reason Stop Dose Admin Hydroxyzine Pamoate 25 mg 05/23/22 12:00 05/27/22 10:36 Hydroxyzine Pamoate 25 Mg Cap PO 25 mg DAILY [facility] Administration Mirtazapine 5 mg 05/23/22 13:59 05/26/22 21:47 Mirtazapine 15 Mg Tab PO 5 mg QHS [facility] Administration Miscellaneous Medication 5 mg 05/15/22 22:00 05/26/22 21:48 Asenapine Maleate [Saphris] SL Not Given HS [facility] Risperidone 0.25 mg 05/23/22 14:00 05/27/22 10:36 Risperidone 0.25 Mg Tab PO 0.25 mg BID [facility] Administration Trazodone HCl 50 mg 05/15/22 22:00 05/26/22 21:47 Trazodone 50 Mg Tab PO 50 mg QHS [facility] Administration Nutrition/Malnutrition Assess - Dietary Evaluation Nutrition/Malnutrition Findings: Nutrition Notes Start: 05/23/22 15:16 Freq: Status: Active Protocol: Document 05/23/22 15:16 YADY (Rec: 05/23/22 15:28 YADY [id number]) Nutrition Notes Need for Assessment generated from: LOS Initial or Follow up Assessment Other Pertinent Diagnosis Dementia w/Behavioral Disturbance. Current Diet Regular Diet (since B 05/15). Labs/Tests 05/23: WNL. Pertinent Medications 05/23: Nutritionally unremarkable. Height 5 ft 8.9 in Weight 77 kg [place] Body Weight (kg) 72.45 BMI 25.1 Weight change and time frame None provided at admission. Weight Status Appropriate Subjective/Other Information RD consult for LOS assessment. Pt's PO intake of meals has been Good (75-100%) and well tolerated, according to ADL notes. Pt is on Room Air, O2 saturation @ 100%, according to Vital Signs notes. Percent of energy/protein needs met: Prescribed Regular Diet provides for energy/protein needs (2,289 Kcal/89 g) during LOS. Burn Absent Trauma Absent GI Symptoms None Food Allergy No Skin Integrity/Comment Assessment WNL. Current % PO Good (75-100%) Minimum of two criteria No Fluid Accumulation N/A Reduced Taping Supervisor Strength N/A (non-severe) Protein-Calorie Malnutrition N\A #1 Nutrition Diagnosis No nutrition diagnosis at this time Is patient on ventilator? No Is Patient Ambulatory and/or Out of Bed Yes REE-([place]-St. Jeor-ambulatory/OOB) [ [id number]] Calculation Used for Recommendations Lamar De Additional Notes Protein: 1-1.2 g/Kg ABW; 77-92 g/day. Fluids: 1 ml/Kcal, or as per MD. Nutrition Intervention Change Diet Order: Conmtinue Regular Diet as tolerated. Revisit per MD consult or patient Sign Off request: Additional Comments Continue monitoring food tolerance, %PO intake of meals , and BM.
--- NOTE | 2022-05-27 13:05 | Progress Note ---
Subjective Date of service: 05/27/22 Principal diagnosis: Dementia with Behavioral Disturbance Subjective Comment: The patient was seen today. He sitting in the dayroom. The patient is confused. Today he actually speaks. He says he's doing okay. He says he slept good. The patient denies SI/HI REVIEW OF SYSTEMS Unable to assess MENTAL STATUS Unable to assess Treatment Plan Patient will be admitted for inpatient psychiatric evaluation, medication adjustment and close monitoring The patient's behavior, mood, sleep and appetite will be closely monitored. Patient will be enrolled in individual and group therapeutic sessions and encouraged to attend. Patient will be provided with a safe and structured environment. Patient's physical health needs will be addressed by the Hospitalist. Hospitalist Consulted Labs including CBC, CMP, Lipid profile and Hemoglobin A1C ordered Social Assessment will be completed and the Nutrition Club Ambassador will work with patient and family to ensure a suitable and safe disposition Medication adjustment will be made as clinically indicated Continue current regimen Usual Wellness Cheondoism/Preservation: -Trazodone 50mg po qhs The patient agreed on the treatment plan, understood the risk, benefit, alternative treatment, potential consequence of no treatment, and gave informed consent. Case staffed with Dr. Joy Medications and Allergies Allergies Allergy/AdvReac Type Severity Reaction Status Date / Time Penicillins Allergy Unknown Verified 05/14/22 23:31 Home Medications Medication Instructions Recorded Confirmed Last Taken Type Asenapine Maleate [Saphris] 5 mg SL HS 05/15/22 05/15/22 Unknown History Active Meds: Active Medications Hydroxyzine Pamoate (Hydroxyzine Pamoate 25 Mg Cap) 25 mg PO DAILY [facility] Last Admin: 05/27/22 10:36 Dose: 25 mg Mirtazapine (Mirtazapine 15 Mg Tab) 5 mg PO QHS [facility] Last Admin: 05/26/22 21:47 Dose: 5 mg Miscellaneous Medication (Asenapine Maleate [Saphris]) 5 mg SL [facility] Last Admin: 05/26/22 21:48 Dose: Not Given Risperidone (Risperidone 0.25 Mg Tab) 0.25 mg PO BID [facility] Last Admin: 05/27/22 10:36 Dose: 0.25 mg Trazodone HCl (Trazodone 50 Mg Tab) 50 mg PO QHS [facility] Last Admin: 05/26/22 21:47 Dose: 50 mg Results - Results Labs/Vitals: Laboratory Last Values WBC 7.7 K/mm3 (4.5-11.0) 05/15/22 20:45 RBC 4.82 M/mm3 (3.65-5.03) 05/15/22 20:45 Hgb 13.9 gm/dl (11.8-15.2) 05/15/22 20:45 Hct 42.0 % (35.5-45.6) 05/15/22 20:45 MCV 87 fl (84-94) 05/15/22 20:45 MCH 29 pg (28-32) 05/15/22 20:45 MCHC 33 % (32-34) 05/15/22 20:45 RDW 13.6 % (13.2-15.2) 05/15/22 20:45 Plt Count 317 K/mm3 (140-440) 05/15/22 20:45 Lymph % (Auto) 28.8 % (13.4-35.0) 05/15/22 20:45 [place] % (Auto) 5.9 % (0.0-7.3) 05/15/22 20:45 Eos % (Auto) 1.9 % (0.0-4.3) 05/15/22 20:45 Baso % (Auto) 0.9 % (0.0-1.8) 05/15/22 20:45 Lymph # (Auto) 2.2 K/mm3 (1.2-5.4) 05/15/22 20:45 [place] # (Auto) 0.5 K/mm3 (0.0-0.8) 05/15/22 20:45 Eos # (Auto) 0.1 K/mm3 (0.0-0.4) 05/15/22 20:45 Baso # (Auto) 0.1 K/mm3 (0.0-0.1) 05/15/22 20:45 Seg Neutrophils % 62.5 % (40.0-70.0) 05/15/22 20:45 Seg Neutrophils # 4.8 K/mm3 (1.8-7.7) 05/15/22 20:45 Sodium 140 mmol/L (137-145) 05/15/22 20:45 Potassium 3.7 mmol/L (3.6-5.0) 05/15/22 20:45 Chloride 102.0 mmol/L (98-107) 05/15/22 20:45 Carbon Dioxide 28 mmol/L (22-30) 05/15/22 20:45 Anion Gap 14 mmol/L 05/15/22 20:45 BUN 11 mg/dL (9-20) 05/15/22 20:45 Creatinine 1.3 mg/dL (0.8-1.3) 05/15/22 20:45 Estimated GFR > 60 ml/min 05/15/22 20:45 BUN/Creatinine Ratio 8 % 05/15/22 20:45 Glucose 84 mg/dL (75-100) 05/15/22 20:45 POC Glucose 80 mg/dL (70-105) 05/16/22 11:43 Hemoglobin A1c 5.6 % (4-6) 05/15/22 20:45 Calcium 9.2 mg/dL (8.4-10.2) 05/15/22 20:45 Total Bilirubin 0.50 mg/dL (0.1-1.2) 05/15/22 20:45 AST 18 units/L (5-40) 05/15/22 20:45 ALT 12 units/L (7-56) 05/15/22 20:45 Alkaline Phosphatase 61 units/L (35-129) 05/15/22 20:45 Total Protein 6.7 g/dL (6.3-8.2) 05/15/22 20:45 Albumin 4.0 g/dL (3.9-5) 05/15/22 20:45 Albumin/Globulin Ratio 1.5 % 05/15/22 20:45 Triglycerides 89 mg/dL (2-149) 05/15/22 20:45 Cholesterol 149 mg/dL (50-199) 05/15/22 20:45 LDL Cholesterol Direct 81 mg/dL (50-130) 05/15/22 20:45 HDL Cholesterol 60 mg/dL (40-59) H 05/15/22 20:45 Cholesterol/HDL Ratio 2.48 % 05/15/22 20:45 TSH 1.590 mlU/mL (0.270-4.200) 05/15/22 20:45 Last Vital Signs Temp 98.3 F 05/26/22 20:50 Pulse 65 05/26/22 20:50 Resp 18 05/26/22 20:50 BP 140/98 05/26/22 20:50 Pulse Ox 99 05/26/22 20:50
[2022-05-27] MEDS: traZODone 50 MG TAB PO SCH (21:47)
[2022-05-27] MEDS: MIRTAZAPINE 15 MG TAB PO SCH (21:48)
[2022-05-27] MEDS: ASENAPINE MALEATE 5 MG SL SCH (21:48)
[2022-05-28] MEDS: hydrOXYzine PAMOATE 25 MG CAP PO SCH (09:24)
[2022-05-28] MEDS: risperiDONE 0.25 MG TAB PO SCH ×2 (09:24→21:16)
--- NOTE | 2022-05-28 12:00 | Discharge Summary ---
Providers - Providers Date of Admission: 05/15/22 00:16 Date of discharge: 05/28/22 Attending physician: ANN JAMES MD 05/14/22 23:41 Consult to Physician [CONS] Routine Comment: Consulting Provider: YAHIR SCHULTE Physician Instructions: Ps manage problems per H&P. Reason For Exam: New admission Primary care physician: SPONGE DIVER Hospitalization Reason for admission: agitation Admitting Diagnosis: F02.81 - DEMENTIA IN OTH DISEASES CLASSD ELSWHR W BEHAVIORAL DISTURB Condition: Stable Hospital course: The patient was provided inpatient psychiatric treatment with safe and supportive care, medication adjustment, adverse effect monitoring, medical evaluations, medical treatments, assessment and psycho-education. The patient's mood, cognition, behavior, moral support are improved and stabilized. St the time of discharge, the patient had no endangering behavior and no debilitating adverse effects. The patient agreed on potential consequences of no treatment and gave informed consent. 05/28 The patient was seen today. He is calm and cooperative. He is sitting at the table in the dayroom. He is confused, but he does answer simple questions today. The patient says he feels "pretty good." He denies SI/HI. Disposition: 01 HOME / SELF CARE / HOMELESS Time spent for discharge: 40 Allergies/Adverse Reactions: Allergies Penicillins Allergy (Verified 05/14/22 23:31) Unknown Vital Signs: Last Vital Signs Temp 97.3 F L 05/27/22 19:32 Pulse 64 05/27/22 19:32 Resp 16 05/27/22 19:32 BP 138/83 05/27/22 19:32 Pulse Ox 99 05/27/22 19:32 Last Lab: Laboratory Last Values WBC 7.7 K/mm3 (4.5-11.0) 05/15/22 20:45 RBC 4.82 M/mm3 (3.65-5.03) 05/15/22 20:45 Hgb 13.9 gm/dl (11.8-15.2) 05/15/22 20:45 Hct 42.0 % (35.5-45.6) 05/15/22 20:45 MCV 87 fl (84-94) 05/15/22 20:45 MCH 29 pg (28-32) 05/15/22 20:45 MCHC 33 % (32-34) 05/15/22 20:45 RDW 13.6 % (13.2-15.2) 05/15/22 20:45 Plt Count 317 K/mm3 (140-440) 05/15/22 20:45 Lymph % (Auto) 28.8 % (13.4-35.0) 05/15/22 20:45 [place] % (Auto) 5.9 % (0.0-7.3) 05/15/22 20:45 Eos % (Auto) 1.9 % (0.0-4.3) 05/15/22 20:45 Baso % (Auto) 0.9 % (0.0-1.8) 05/15/22 20:45 Lymph # (Auto) 2.2 K/mm3 (1.2-5.4) 05/15/22 20:45 [place] # (Auto) 0.5 K/mm3 (0.0-0.8) 05/15/22 20:45 Eos # (Auto) 0.1 K/mm3 (0.0-0.4) 05/15/22 20:45 Baso # (Auto) 0.1 K/mm3 (0.0-0.1) 05/15/22 20:45 Seg Neutrophils % 62.5 % (40.0-70.0) 05/15/22 20:45 Seg Neutrophils # 4.8 K/mm3 (1.8-7.7) 05/15/22 20:45 Sodium 140 mmol/L (137-145) 05/15/22 20:45 Potassium 3.7 mmol/L (3.6-5.0) 05/15/22 20:45 Chloride 102.0 mmol/L (98-107) 05/15/22 20:45 Carbon Dioxide 28 mmol/L (22-30) 05/15/22 20:45 Anion Gap 14 mmol/L 05/15/22 20:45 BUN 11 mg/dL (9-20) 05/15/22 20:45 Creatinine 1.3 mg/dL (0.8-1.3) 05/15/22 20:45 Estimated GFR > 60 ml/min 05/15/22 20:45 BUN/Creatinine Ratio 8 % 05/15/22 20:45 Glucose 84 mg/dL (75-100) 05/15/22 20:45 POC Glucose 80 mg/dL (70-105) 05/16/22 11:43 Hemoglobin A1c 5.6 % (4-6) 05/15/22 20:45 Calcium 9.2 mg/dL (8.4-10.2) 05/15/22 20:45 Total Bilirubin 0.50 mg/dL (0.1-1.2) 05/15/22 20:45 AST 18 units/L (5-40) 05/15/22 20:45 ALT 12 units/L (7-56) 05/15/22 20:45 Alkaline Phosphatase 61 units/L (35-129) 05/15/22 20:45 Total Protein 6.7 g/dL (6.3-8.2) 05/15/22 20:45 Albumin 4.0 g/dL (3.9-5) 05/15/22 20:45 Albumin/Globulin Ratio 1.5 % 05/15/22 20:45 Triglycerides 89 mg/dL (2-149) 05/15/22 20:45 Cholesterol 149 mg/dL (50-199) 05/15/22 20:45 LDL Cholesterol Direct 81 mg/dL (50-130) 05/15/22 20:45 HDL Cholesterol 60 mg/dL (40-59) H 05/15/22 20:45 Cholesterol/HDL Ratio 2.48 % 05/15/22 20:45 TSH 1.590 mlU/mL (0.270-4.200) 05/15/22 20:45 Core Measure Documentation - Palliative Care Palliative Care/ Comfort Measures: Not Applicable - Core Measures Any of the following diagnoses?: none Exam - Constitutional Vitals: Temp Pulse Resp BP Pulse Ox 97.3 F L 64 16 138/83 99 05/27/22 19:32 05/27/22 19:32 05/27/22 19:32 05/27/22 19:32 05/27/22 19:32 General appearance: Present: no acute distress - EENT Eyes: Present: PERRL, EOM intact ENT: hearing intact, clear oral mucosa - Neck Neck: Present: supple, normal ROM - Respiratory Respiratory effort: normal Plan Activity: advance as tolerated Weight Bearing Status: Weight Bear as Tolerated Care Plan Goals: Maintain good and stable mental health Plan of Treatment: The patient should be compliant with medications, not to use drugs, and not to drink alcohol. The patient understands that if suicidal ideas, homicidal ideas or any endangering feeling arise, the patient should seek assistance including, but not limited to crisis hotline, and emergency room. Assessment: Dementia with Behavioral Disturbance Follow up with: PRIMARY CARE,MD [Primary Care Provider] - 7 Days Prescriptions: traZODone [Desyrel] 50 mg PO QHS #30 tablet Mirtazapine [Remeron 15mg TAB] 7.5 mg PO QHS #15 tablet risperiDONE [RisperDAL] 0.25 mg PO BID #60 tablet hydrOXYzine PAMOATE [Vistaril] 25 mg PO DAILY #30 capsule
[2022-05-28] MEDS: ASENAPINE MALEATE 5 MG SL SCH (21:15)
[2022-05-28] MEDS: MIRTAZAPINE 15 MG TAB PO SCH (21:16)
[2022-05-28] MEDS: traZODone 50 MG TAB PO SCH (21:16)
--- NOTE | 2022-05-29 09:10 | Progress Note ---
Subjective Date of service: 05/29/22 Principal diagnosis: Dementia with Behavioral Disturbance Subjective Comment: The patient was seen today. He is calm, and cooperative. He is confused. He was discharged yesterday, but tested positive for COVID. His discharge has been placed on hold until placement is secured. REVIEW OF SYSTEMS Unable to assess MENTAL STATUS Unable to assess Treatment Plan Patient will be admitted for inpatient psychiatric evaluation, medication adjustment and close monitoring The patient's behavior, mood, sleep and appetite will be closely monitored. Patient will be enrolled in individual and group therapeutic sessions and encouraged to attend. Patient will be provided with a safe and structured environment. Patient's physical health needs will be addressed by the Hospitalist. Hospitalist Consulted Labs including CBC, CMP, Lipid profile and Hemoglobin A1C ordered Social Assessment will be completed and the Hl7 Interface Developer will work with patient and family to ensure a suitable and safe disposition Medication adjustment will be made as clinically indicated Continue current regimen Usual Wellness Orthodoxy/Preservation: -Trazodone 50mg po qhs The patient agreed on the treatment plan, understood the risk, benefit, alternative treatment, potential consequence of no treatment, and gave informed consent. Case staffed with Dr. Joy Medications and Allergies Allergies Allergy/AdvReac Type Severity Reaction Status Date / Time Penicillins Allergy Unknown Verified 05/14/22 23:31 Home Medications Medication Instructions Recorded Confirmed Last Taken Type Asenapine Maleate [Saphris] 5 mg SL 05/15/22 05/15/22 Unknown History Mirtazapine [Remeron 15mg TAB] 7.5 mg PO QHS #15 tablet 05/28/22 Unknown Rx hydrOXYzine PAMOATE [Vistaril] 25 mg PO DAILY #30 capsule 05/28/22 Unknown Rx risperiDONE [RisperDAL] 0.25 mg PO BID #60 tablet 05/28/22 Unknown Rx traZODone [Desyrel] 50 mg PO QHS #30 tablet 05/28/22 Unknown Rx Active Meds: Active Medications Hydroxyzine Pamoate (Hydroxyzine Pamoate 25 Mg Cap) 25 mg PO DAILY [facility] Last Admin: 05/28/22 09:24 Dose: 25 mg Mirtazapine (Mirtazapine 15 Mg Tab) 7.5 mg PO QHS [facility] Last Admin: 05/28/22 21:16 Dose: 7.5 mg Miscellaneous Medication (Asenapine Maleate [Saphris]) 5 mg SL HS [facility] Last Admin: 05/28/22 21:15 Dose: Not Given Risperidone (Risperidone 0.25 Mg Tab) 0.25 mg PO BID [facility] Last Admin: 05/28/22 21:16 Dose: 0.25 mg Trazodone HCl (Trazodone 50 Mg Tab) 50 mg PO QHS [facility] Last Admin: 05/28/22 21:16 Dose: 50 mg Results - Results Labs/Vitals: Laboratory Last Values WBC 7.7 K/mm3 (4.5-11.0) 05/15/22 20:45 RBC 4.82 M/mm3 (3.65-5.03) 05/15/22 20:45 Hgb 13.9 gm/dl (11.8-15.2) 05/15/22 20:45 Hct 42.0 % (35.5-45.6) 05/15/22 20:45 MCV 87 fl (84-94) 05/15/22 20:45 MCH 29 pg (28-32) 05/15/22 20:45 MCHC 33 % (32-34) 05/15/22 20:45 RDW 13.6 % (13.2-15.2) 05/15/22 20:45 Plt Count 317 K/mm3 (140-440) 05/15/22 20:45 Lymph % (Auto) 28.8 % (13.4-35.0) 05/15/22 20:45 [place] % (Auto) 5.9 % (0.0-7.3) 05/15/22 20:45 Eos % (Auto) 1.9 % (0.0-4.3) 05/15/22 20:45 Baso % (Auto) 0.9 % (0.0-1.8) 05/15/22 20:45 Lymph # (Auto) 2.2 K/mm3 (1.2-5.4) 05/15/22 20:45 [place] # (Auto) 0.5 K/mm3 (0.0-0.8) 05/15/22 20:45 Eos # (Auto) 0.1 K/mm3 (0.0-0.4) 05/15/22 20:45 Baso # (Auto) 0.1 K/mm3 (0.0-0.1) 05/15/22 20:45 Seg Neutrophils % 62.5 % (40.0-70.0) 05/15/22 20:45 Seg Neutrophils # 4.8 K/mm3 (1.8-7.7) 05/15/22 20:45 Sodium 140 mmol/L (137-145) 05/15/22 20:45 Potassium 3.7 mmol/L (3.6-5.0) 05/15/22 20:45 Chloride 102.0 mmol/L (98-107) 05/15/22 20:45 Carbon Dioxide 28 mmol/L (22-30) 05/15/22 20:45 Anion Gap 14 mmol/L 05/15/22 20:45 BUN 11 mg/dL (9-20) 05/15/22 20:45 Creatinine 1.3 mg/dL (0.8-1.3) 05/15/22 20:45 Estimated GFR > 60 ml/min 05/15/22 20:45 BUN/Creatinine Ratio 8 % 05/15/22 20:45 Glucose 84 mg/dL (75-100) 05/15/22 20:45 POC Glucose 80 mg/dL (70-105) 05/16/22 11:43 Hemoglobin A1c 5.6 % (4-6) 05/15/22 20:45 Calcium 9.2 mg/dL (8.4-10.2) 05/15/22 20:45 Total Bilirubin 0.50 mg/dL (0.1-1.2) 05/15/22 20:45 AST 18 units/L (5-40) 05/15/22 20:45 ALT 12 units/L (7-56) 05/15/22 20:45 Alkaline Phosphatase 61 units/L (35-129) 05/15/22 20:45 Total Protein 6.7 g/dL (6.3-8.2) 05/15/22 20:45 Albumin 4.0 g/dL (3.9-5) 05/15/22 20:45 Albumin/Globulin Ratio 1.5 % 05/15/22 20:45 Triglycerides 89 mg/dL (2-149) 05/15/22 20:45 Cholesterol 149 mg/dL (50-199) 05/15/22 20:45 LDL Cholesterol Direct 81 mg/dL (50-130) 05/15/22 20:45 HDL Cholesterol 60 mg/dL (40-59) H 05/15/22 20:45 Cholesterol/HDL Ratio 2.48 % 05/15/22 20:45 TSH 1.590 mlU/mL (0.270-4.200) 05/15/22 20:45 SARS-CoV-2 (PCR) Positive (Negative) A 05/28/22 11:30 Last Vital Signs Temp 99.6 F 05/28/22 20:53 Pulse 76 05/28/22 20:53 Resp 16 05/28/22 20:53 BP 123/87 05/28/22 20:53 Pulse Ox 98 05/28/22 20:53
[2022-05-29] MEDS: hydrOXYzine PAMOATE 25 MG CAP PO SCH (10:59)
[2022-05-29] MEDS: risperiDONE 0.25 MG TAB PO SCH ×2 (10:59→22:46)
--- NOTE | 2022-05-29 12:07 | Event Note ---
Date: 05/29/22 Spoke to the patient's spouse about the patient's progress, treatment plan and discharge planning. She did not have any questions and says she knows that his symptoms are apart of his disease process. She is aware that the patient has COVID.
--- NOTE | 2022-05-29 12:16 | Progress Note ---
Assessment and Plan - Patient Problems (1) Vascular dementia with behavioral disturbance Current Visit: Yes Status: Acute Plan to address problem: For prompt, verbal redirection, benzodiazepine therapy as clinic indicated. (2) Cerebral atherosclerosis Current Visit: Yes Status: Acute Plan to address problem: Risk factor reduction, antiplatelet therapy as clinically indicated. (3) Major depression Current Visit: Yes Status: Acute Plan to address problem: Continue medical management, supportive care. (4) Generalized anxiety disorder Current Visit: Yes Status: Acute Plan to address problem: Benzodiazepine therapy as clinically indicated, supportive care (5) Coronavirus infection Current Visit: Yes Status: Acute Plan to address problem: Pt currently asymptomatic. (6) Advance care planning Current Visit: Yes Status: Acute Plan to address problem: Disease education data, care plan discussed, diagnoses discussed, prognosis discussed, patient is full code, +30 minutes. (7) Preventative health care Current Visit: Yes Status: Acute Plan to address problem: Patient counseled regarding home safety, outpatient follow-up with primary care physician for all age and risk factor appropriate screening test. +30 minutes. History Interval history: 71 YO Male with Vascular Dementia with behavioral disturbance, Cerebral Atherosclerosis admitted to [facility] psych unit for psychiatric stabilization. consult placed by Dr. Reid for medical management. Patient seen and evaluated in the recreation room. Patient appears to be at baseline level of cognition and function. Pt has asymptomatic coronavirus infection. Pt family notified. Hospitalist Physical - Constitutional Vitals: Temp Pulse Resp BP Pulse Ox 99.6 F 76 16 123/87 98 05/28/22 20:53 05/28/22 20:53 05/28/22 20:53 05/28/22 20:53 05/28/22 20:53 General appearance: Present: no acute distress Results - Labs CBC & Chem 7: 05/15/22 20:45 05/15/22 20:45 Labs: Laboratory Last Values WBC 7.7 K/mm3 (4.5-11.0) 05/15/22 20:45 RBC 4.82 M/mm3 (3.65-5.03) 05/15/22 20:45 Hgb 13.9 gm/dl (11.8-15.2) 05/15/22 20:45 Hct 42.0 % (35.5-45.6) 05/15/22 20:45 MCV 87 fl (84-94) 05/15/22 20:45 MCH 29 pg (28-32) 05/15/22 20:45 MCHC 33 % (32-34) 05/15/22 20:45 RDW 13.6 % (13.2-15.2) 05/15/22 20:45 Plt Count 317 K/mm3 (140-440) 05/15/22 20:45 Lymph % (Auto) 28.8 % (13.4-35.0) 05/15/22 20:45 [place] % (Auto) 5.9 % (0.0-7.3) 05/15/22 20:45 Eos % (Auto) 1.9 % (0.0-4.3) 05/15/22 20:45 Baso % (Auto) 0.9 % (0.0-1.8) 05/15/22 20:45 Lymph # (Auto) 2.2 K/mm3 (1.2-5.4) 05/15/22 20:45 [place] # (Auto) 0.5 K/mm3 (0.0-0.8) 05/15/22 20:45 Eos # (Auto) 0.1 K/mm3 (0.0-0.4) 05/15/22 20:45 Baso # (Auto) 0.1 K/mm3 (0.0-0.1) 05/15/22 20:45 Seg Neutrophils % 62.5 % (40.0-70.0) 05/15/22 20:45 Seg Neutrophils # 4.8 K/mm3 (1.8-7.7) 05/15/22 20:45 Sodium 140 mmol/L (137-145) 05/15/22 20:45 Potassium 3.7 mmol/L (3.6-5.0) 05/15/22 20:45 Chloride 102.0 mmol/L (98-107) 05/15/22 20:45 Carbon Dioxide 28 mmol/L (22-30) 05/15/22 20:45 Anion Gap 14 mmol/L 05/15/22 20:45 BUN 11 mg/dL (9-20) 05/15/22 20:45 Creatinine 1.3 mg/dL (0.8-1.3) 05/15/22 20:45 Estimated GFR > 60 ml/min 05/15/22 20:45 BUN/Creatinine Ratio 8 % 05/15/22 20:45 Glucose 84 mg/dL (75-100) 05/15/22 20:45 POC Glucose 80 mg/dL (70-105) 05/16/22 11:43 Hemoglobin A1c 5.6 % (4-6) 05/15/22 20:45 Calcium 9.2 mg/dL (8.4-10.2) 05/15/22 20:45 Total Bilirubin 0.50 mg/dL (0.1-1.2) 05/15/22 20:45 AST 18 units/L (5-40) 05/15/22 20:45 ALT 12 units/L (7-56) 05/15/22 20:45 Alkaline Phosphatase 61 units/L (35-129) 05/15/22 20:45 Total Protein 6.7 g/dL (6.3-8.2) 05/15/22 20:45 Albumin 4.0 g/dL (3.9-5) 05/15/22 20:45 Albumin/Globulin Ratio 1.5 % 05/15/22 20:45 Triglycerides 89 mg/dL (2-149) 05/15/22 20:45 Cholesterol 149 mg/dL (50-199) 05/15/22 20:45 LDL Cholesterol Direct 81 mg/dL (50-130) 05/15/22 20:45 HDL Cholesterol 60 mg/dL (40-59) H 05/15/22 20:45 Cholesterol/HDL Ratio 2.48 % 05/15/22 20:45 TSH 1.590 mlU/mL (0.270-4.200) 05/15/22 20:45 SARS-CoV-2 (PCR) Positive (Negative) A 05/28/22 11:30 Bailey/IV: Voiding Method Incontinent Active Medications - Current Medications Current Medications: Generic Name Dose Route Start Last Admin Trade Name Freq PRN Reason Stop Dose Admin Hydroxyzine Pamoate 25 mg 05/23/22 12:00 05/29/22 10:59 Hydroxyzine Pamoate 25 Mg Cap PO 25 mg DAILY [facility] Administration Mirtazapine 7.5 mg 05/28/22 11:58 05/28/22 21:16 Mirtazapine 15 Mg Tab PO 7.5 mg QHS [facility] Administration Miscellaneous Medication 5 mg 05/15/22 22:00 05/28/22 21:15 Asenapine Maleate [Saphris] SL Not Given HS [facility] Risperidone 0.25 mg 05/23/22 14:00 05/29/22 10:59 Risperidone 0.25 Mg Tab PO 0.25 mg BID [facility] Administration Trazodone HCl 50 mg 05/15/22 22:00 05/28/22 21:16 Trazodone 50 Mg Tab PO 50 mg QHS [facility] Administration Nutrition/Malnutrition Assess - Dietary Evaluation Nutrition/Malnutrition Findings: Nutrition Notes Start: 05/23/22 15:16 Freq: Status: Active Protocol: Document 05/23/22 15:16 YADY (Rec: 05/23/22 15:28 YADY [id number]) Nutrition Notes Need for Assessment generated from: LOS Initial or Follow up Assessment Other Pertinent Diagnosis Dementia w/Behavioral Disturbance. Current Diet Regular Diet (since B 05/15). Labs/Tests 05/23: WNL. Pertinent Medications 05/23: Nutritionally unremarkable. Height 5 ft 8.9 in Weight 77 kg [place] Body Weight (kg) 72.45 BMI 25.1 Weight change and time frame None provided at admission. Weight Status Appropriate Subjective/Other Information RD consult for LOS assessment. Pt's PO intake of meals has been Good (75-100%) and well tolerated, according to ADL notes. Pt is on Room Air, O2 saturation @ 100%, according to Vital Signs notes. Percent of energy/protein needs met: Prescribed Regular Diet provides for energy/protein needs (2,289 Kcal/89 g) during LOS. Burn Absent Trauma Absent GI Symptoms None Food Allergy No Skin Integrity/Comment Assessment WNL. Current % PO Good (75-100%) Minimum of two criteria No Fluid Accumulation N/A Reduced Pickers Material Handlers Strength N/A (non-severe) Protein-Calorie Malnutrition N\A #1 Nutrition Diagnosis No nutrition diagnosis at this time Is patient on ventilator? No Is Patient Ambulatory and/or Out of Bed Yes REE-([facility]-ambulatory/OOB) [ 1967.953 NUTR.MSJOOB] Calculation Used for Recommendations [facility] Additional Notes Protein: 1-1.2 g/Kg ABW; 77-92 g/day. Fluids: 1 ml/Kcal, or as per MD. Nutrition Intervention Change Diet Order: Conmtinue Regular Diet as tolerated. Revisit per MD consult or patient Sign Off request: Additional Comments Continue monitoring food tolerance, %PO intake of meals , and BM.
--- NOTE | 2022-05-29 15:01 | Progress Note ---
Assessment and Plan - Patient Problems (1) Vascular dementia with behavioral disturbance Current Visit: Yes Status: Acute Plan to address problem: For prompt, verbal redirection, benzodiazepine therapy as clinic indicated. (2) Cerebral atherosclerosis Current Visit: Yes Status: Acute Plan to address problem: Risk factor reduction, antiplatelet therapy as clinically indicated. (3) Major depression Current Visit: Yes Status: Acute Plan to address problem: Continue medical management, supportive care. (4) Generalized anxiety disorder Current Visit: Yes Status: Acute Plan to address problem: Benzodiazepine therapy as clinically indicated, supportive care (5) Advance care planning Current Visit: Yes Status: Acute Plan to address problem: Disease education data, care plan discussed, diagnoses discussed, prognosis discussed, patient is full code, +30 minutes. (6) Preventative health care Current Visit: Yes Status: Acute Plan to address problem: Patient counseled regarding home safety, outpatient follow-up with primary care physician for all age and risk factor appropriate screening test. +30 minutes. History Interval history: 71 YO Male with Vascular Dementia with behavioral disturbance, Cerebral Atherosclerosis admitted to [facility] psych unit for psychiatric stabilization. consult placed by Dr. Reid for medical management. Patient seen and evaluated in the recreation room. Patient appears to be at baseline level of cognition and function. No reported nursing events. Hospitalist Physical - Constitutional Vitals: Temp Pulse Resp BP Pulse Ox 99.6 F 76 16 123/87 98 05/28/22 20:53 05/28/22 20:53 05/28/22 20:53 05/28/22 20:53 05/28/22 20:53 General appearance: Present: no acute distress, well-nourished - EENT Eyes: Present: PERRL ENT: hearing decreased - Neck Neck: Present: supple - Respiratory Respiratory effort: normal Respiratory: bilateral: diminished - Cardiovascular Rhythm: regular Heart Sounds: Present: S1 & S2 - Extremities Extremities: no ischemia Peripheral Pulses: within normal limits - Abdominal General gastrointestinal: soft, non-tender, non-distended - Integumentary Integumentary: Present: clear, dry - Psychiatric Psychiatric: cooperative - Neurologic Neurologic: CNII-XII intact Results - Labs CBC & Chem 7: 05/15/22 20:45 05/15/22 20:45 Labs: Laboratory Last Values WBC 7.7 K/mm3 (4.5-11.0) 05/15/22 20:45 RBC 4.82 M/mm3 (3.65-5.03) 05/15/22 20:45 Hgb 13.9 gm/dl (11.8-15.2) 05/15/22 20:45 Hct 42.0 % (35.5-45.6) 05/15/22 20:45 MCV 87 fl (84-94) 05/15/22 20:45 MCH 29 pg (28-32) 05/15/22 20:45 MCHC 33 % (32-34) 05/15/22 20:45 RDW 13.6 % (13.2-15.2) 05/15/22 20:45 Plt Count 317 K/mm3 (140-440) 05/15/22 20:45 Lymph % (Auto) 28.8 % (13.4-35.0) 05/15/22 20:45 [place] % (Auto) 5.9 % (0.0-7.3) 05/15/22 20:45 Eos % (Auto) 1.9 % (0.0-4.3) 05/15/22 20:45 Baso % (Auto) 0.9 % (0.0-1.8) 05/15/22 20:45 Lymph # (Auto) 2.2 K/mm3 (1.2-5.4) 05/15/22 20:45 [place] # (Auto) 0.5 K/mm3 (0.0-0.8) 05/15/22 20:45 Eos # (Auto) 0.1 K/mm3 (0.0-0.4) 05/15/22 20:45 Baso # (Auto) 0.1 K/mm3 (0.0-0.1) 05/15/22 20:45 Seg Neutrophils % 62.5 % (40.0-70.0) 05/15/22 20:45 Seg Neutrophils # 4.8 K/mm3 (1.8-7.7) 05/15/22 20:45 Sodium 140 mmol/L (137-145) 05/15/22 20:45 Potassium 3.7 mmol/L (3.6-5.0) 05/15/22 20:45 Chloride 102.0 mmol/L (98-107) 05/15/22 20:45 Carbon Dioxide 28 mmol/L (22-30) 05/15/22 20:45 Anion Gap 14 mmol/L 05/15/22 20:45 BUN 11 mg/dL (9-20) 05/15/22 20:45 Creatinine 1.3 mg/dL (0.8-1.3) 05/15/22 20:45 Estimated GFR > 60 ml/min 05/15/22 20:45 BUN/Creatinine Ratio 8 % 05/15/22 20:45 Glucose 84 mg/dL (75-100) 05/15/22 20:45 POC Glucose 80 mg/dL (70-105) 05/16/22 11:43 Hemoglobin A1c 5.6 % (4-6) 05/15/22 20:45 Calcium 9.2 mg/dL (8.4-10.2) 05/15/22 20:45 Total Bilirubin 0.50 mg/dL (0.1-1.2) 05/15/22 20:45 AST 18 units/L (5-40) 05/15/22 20:45 ALT 12 units/L (7-56) 05/15/22 20:45 Alkaline Phosphatase 61 units/L (35-129) 05/15/22 20:45 Total Protein 6.7 g/dL (6.3-8.2) 05/15/22 20:45 Albumin 4.0 g/dL (3.9-5) 05/15/22 20:45 Albumin/Globulin Ratio 1.5 % 05/15/22 20:45 Triglycerides 89 mg/dL (2-149) 05/15/22 20:45 Cholesterol 149 mg/dL (50-199) 05/15/22 20:45 LDL Cholesterol Direct 81 mg/dL (50-130) 05/15/22 20:45 HDL Cholesterol 60 mg/dL (40-59) H 05/15/22 20:45 Cholesterol/HDL Ratio 2.48 % 05/15/22 20:45 TSH 1.590 mlU/mL (0.270-4.200) 05/15/22 20:45 SARS-CoV-2 (PCR) Positive (Negative) A 05/28/22 11:30 Bailey/IV: Voiding Method Incontinent Active Medications - Current Medications Current Medications: Generic Name Dose Route Start Last Admin Trade Name Freq PRN Reason Stop Dose Admin Hydroxyzine Pamoate 25 mg 05/23/22 12:00 05/29/22 10:59 Hydroxyzine Pamoate 25 Mg Cap PO 25 mg DAILY [facility] Administration Mirtazapine 7.5 mg 05/28/22 11:58 05/28/22 21:16 Mirtazapine 15 Mg Tab PO 7.5 mg QHS [facility] Administration Miscellaneous Medication 5 mg 05/15/22 22:00 05/28/22 21:15 Asenapine Maleate [Saphris] SL Not Given HS [facility] Risperidone 0.25 mg 05/23/22 14:00 05/29/22 10:59 Risperidone 0.25 Mg Tab PO 0.25 mg BID [facility] Administration Trazodone HCl 50 mg 05/15/22 22:00 05/28/22 21:16 Trazodone 50 Mg Tab PO 50 mg QHS [facility] Administration Nutrition/Malnutrition Assess - Dietary Evaluation Nutrition/Malnutrition Findings: Nutrition Notes Start: 05/23/22 15:16 Freq: Status: Active Protocol: Document 05/23/22 15:16 YADY (Rec: 05/23/22 15:28 YADY [id number]) Nutrition Notes Need for Assessment generated from: LOS Initial or Follow up Assessment Other Pertinent Diagnosis Dementia w/Behavioral Disturbance. Current Diet Regular Diet (since B 05/15). Labs/Tests 05/23: WNL. Pertinent Medications 05/23: Nutritionally unremarkable. Height 5 ft 8.9 in Weight 77 kg [place] Body Weight (kg) 72.45 BMI 25.1 Weight change and time frame None provided at admission. Weight Status Appropriate Subjective/Other Information RD consult for LOS assessment. Pt's PO intake of meals has been Good (75-100%) and well tolerated, according to ADL notes. Pt is on Room Air, O2 saturation @ 100%, according to Vital Signs notes. Percent of energy/protein needs met: Prescribed Regular Diet provides for energy/protein needs (2,289 Kcal/89 g) during LOS. Burn Absent Trauma Absent GI Symptoms None Food Allergy No Skin Integrity/Comment Assessment WNL. Current % PO Good (75-100%) Minimum of two criteria No Fluid Accumulation N/A Reduced Barrel Washer Machine Strength N/A (non-severe) Protein-Calorie Malnutrition N\A #1 Nutrition Diagnosis No nutrition diagnosis at this time Is patient on ventilator? No Is Patient Ambulatory and/or Out of Bed Yes REE-([facility]-ambulatory/OOB) [ [id number]] Calculation Used for Recommendations [facility] Additional Notes Protein: 1-1.2 g/Kg ABW; 77-92 g/day. Fluids: 1 ml/Kcal, or as per MD. Nutrition Intervention Change Diet Order: Conmtinue Regular Diet as tolerated. Revisit per MD consult or patient Sign Off request: Additional Comments Continue monitoring food tolerance, %PO intake of meals , and BM.
[2022-05-29] MEDS: MIRTAZAPINE 15 MG TAB PO SCH (22:46)
[2022-05-29] MEDS: traZODone 50 MG TAB PO SCH (22:46)
[2022-05-29] MEDS: ASENAPINE MALEATE 5 MG SL SCH (22:47)
[2022-05-30] MEDS: hydrOXYzine PAMOATE 25 MG CAP PO SCH (09:21)
[2022-05-30] MEDS: risperiDONE 0.25 MG TAB PO SCH ×2 (09:21→21:17)
--- NOTE | 2022-05-30 15:17 | Progress Note ---
Subjective Date of service: 05/30/22 Principal diagnosis: Dementia with Behavioral Disturbance Subjective Comment: The patient was seen today. He is confused. He says he's doing okay. He is sitting in a room at the table by himself. He is COVID pos. REVIEW OF SYSTEMS Unable to assess MENTAL STATUS Unable to assess Treatment Plan Patient will be admitted for inpatient psychiatric evaluation, medication adjustment and close monitoring The patient's behavior, mood, sleep and appetite will be closely monitored. Patient will be enrolled in individual and group therapeutic sessions and encouraged to attend. Patient will be provided with a safe and structured environment. Patient's physical health needs will be addressed by the Hospitalist. Hospitalist Consulted Labs including CBC, CMP, Lipid profile and Hemoglobin A1C ordered Social Assessment will be completed and the Hands Assembler will work with patient and family to ensure a suitable and safe disposition Medication adjustment will be made as clinically indicated Continue current regimen Usual Wellness Religious/Preservation: -Trazodone 50mg po qhs The patient agreed on the treatment plan, understood the risk, benefit, alternative treatment, potential consequence of no treatment, and gave informed consent. Case staffed with Dr. Joy Medications and Allergies Allergies Allergy/AdvReac Type Severity Reaction Status Date / Time Penicillins Allergy Unknown Verified 05/14/22 23:31 Home Medications Medication Instructions Recorded Confirmed Last Taken Type Asenapine Maleate [Saphris] 5 mg SL HS 05/15/22 05/15/22 Unknown History Mirtazapine [Remeron 15mg TAB] 7.5 mg PO QHS #15 tablet 05/28/22 Unknown Rx hydrOXYzine PAMOATE [Vistaril] 25 mg PO DAILY #30 capsule 05/28/22 Unknown Rx risperiDONE [RisperDAL] 0.25 mg PO BID #60 tablet 05/28/22 Unknown Rx traZODone [Desyrel] 50 mg PO QHS #30 tablet 05/28/22 Unknown Rx Active Meds: Active Medications Hydroxyzine Pamoate (Hydroxyzine Pamoate 25 Mg Cap) 25 mg PO DAILY [facility] Last Admin: 05/30/22 09:21 Dose: 25 mg Mirtazapine (Mirtazapine 15 Mg Tab) 7.5 mg PO QHS [facility] Last Admin: 05/29/22 22:46 Dose: 7.5 mg Miscellaneous Medication (Asenapine Maleate [Saphris]) 5 mg SL HS [facility] Last Admin: 05/29/22 22:47 Dose: Not Given Risperidone (Risperidone 0.25 Mg Tab) 0.25 mg PO BID [facility] Last Admin: 05/30/22 09:21 Dose: 0.25 mg Trazodone HCl (Trazodone 50 Mg Tab) 50 mg PO QHS [facility] Last Admin: 05/29/22 22:46 Dose: 50 mg Results - Results Labs/Vitals: Laboratory Last Values WBC 7.7 K/mm3 (4.5-11.0) 05/15/22 20:45 RBC 4.82 M/mm3 (3.65-5.03) 05/15/22 20:45 Hgb 13.9 gm/dl (11.8-15.2) 05/15/22 20:45 Hct 42.0 % (35.5-45.6) 05/15/22 20:45 MCV 87 fl (84-94) 05/15/22 20:45 MCH 29 pg (28-32) 05/15/22 20:45 MCHC 33 % (32-34) 05/15/22 20:45 RDW 13.6 % (13.2-15.2) 05/15/22 20:45 Plt Count 317 K/mm3 (140-440) 05/15/22 20:45 Lymph % (Auto) 28.8 % (13.4-35.0) 05/15/22 20:45 [place] % (Auto) 5.9 % (0.0-7.3) 05/15/22 20:45 Eos % (Auto) 1.9 % (0.0-4.3) 05/15/22 20:45 Baso % (Auto) 0.9 % (0.0-1.8) 05/15/22 20:45 Lymph # (Auto) 2.2 K/mm3 (1.2-5.4) 05/15/22 20:45 [place] # (Auto) 0.5 K/mm3 (0.0-0.8) 05/15/22 20:45 Eos # (Auto) 0.1 K/mm3 (0.0-0.4) 05/15/22 20:45 Baso # (Auto) 0.1 K/mm3 (0.0-0.1) 05/15/22 20:45 Seg Neutrophils % 62.5 % (40.0-70.0) 05/15/22 20:45 Seg Neutrophils # 4.8 K/mm3 (1.8-7.7) 05/15/22 20:45 Sodium 140 mmol/L (137-145) 05/15/22 20:45 Potassium 3.7 mmol/L (3.6-5.0) 05/15/22 20:45 Chloride 102.0 mmol/L (98-107) 05/15/22 20:45 Carbon Dioxide 28 mmol/L (22-30) 05/15/22 20:45 Anion Gap 14 mmol/L 05/15/22 20:45 BUN 11 mg/dL (9-20) 05/15/22 20:45 Creatinine 1.3 mg/dL (0.8-1.3) 05/15/22 20:45 Estimated GFR > 60 ml/min 05/15/22 20:45 BUN/Creatinine Ratio 8 % 05/15/22 20:45 Glucose 84 mg/dL (75-100) 05/15/22 20:45 POC Glucose 80 mg/dL (70-105) 05/16/22 11:43 Hemoglobin A1c 5.6 % (4-6) 05/15/22 20:45 Calcium 9.2 mg/dL (8.4-10.2) 05/15/22 20:45 Total Bilirubin 0.50 mg/dL (0.1-1.2) 05/15/22 20:45 AST 18 units/L (5-40) 05/15/22 20:45 ALT 12 units/L (7-56) 05/15/22 20:45 Alkaline Phosphatase 61 units/L (35-129) 05/15/22 20:45 Total Protein 6.7 g/dL (6.3-8.2) 05/15/22 20:45 Albumin 4.0 g/dL (3.9-5) 05/15/22 20:45 Albumin/Globulin Ratio 1.5 % 05/15/22 20:45 Triglycerides 89 mg/dL (2-149) 05/15/22 20:45 Cholesterol 149 mg/dL (50-199) 05/15/22 20:45 LDL Cholesterol Direct 81 mg/dL (50-130) 05/15/22 20:45 HDL Cholesterol 60 mg/dL (40-59) H 05/15/22 20:45 Cholesterol/HDL Ratio 2.48 % 05/15/22 20:45 TSH 1.590 mlU/mL (0.270-4.200) 05/15/22 20:45 SARS-CoV-2 (PCR) Positive (Negative) A 05/28/22 11:30 Last Vital Signs Temp 98.6 F 05/30/22 08:07 Pulse 71 05/30/22 08:07 Resp 18 05/30/22 08:07 BP 100/75 05/30/22 08:07 Pulse Ox 98 05/30/22 08:07
[2022-05-30 20:49] VITALS: BP 113/84
[2022-05-30] MEDS: ASENAPINE MALEATE 5 MG SL SCH (21:17)
[2022-05-30] MEDS: traZODone 50 MG TAB PO SCH (21:17)
[2022-05-30] MEDS: MIRTAZAPINE 15 MG TAB PO SCH (21:17)
--- NOTE | 2022-05-31 07:58 | Discharge Summary ---
Providers - Providers Date of Admission: 05/15/22 00:16 Date of discharge: 05/31/22 Attending physician: ANN JAMES MD 05/14/22 23:41 Consult to Physician [CONS] Routine Comment: Consulting Provider: YAHIR SCHULTE Physician Instructions: Ps manage problems per H&P. Reason For Exam: New admission Primary care physician: CENTRIFUGE SEPARATOR OPERATOR Hospitalization Reason for admission: agitatation Admitting Diagnosis: F02.81 - DEMENTIA IN OTH DISEASES CLASSD ELSWHR W BEHAVIORAL DISTURB Condition: Stable Hospital course: The patient was provided inpatient psychiatric treatment with safe and supportive care, medication adjustment, adverse effect monitoring, medical evaluations, medical treatments, assessment and psycho-education. The patient's mood, cognition, behavior, moral support are improved and stabilized. St the time of discharge, the patient had no endangering behavior and no debilitating adverse effects. The patient agreed on potential consequences of no treatment and gave informed consent. Disposition: 01 HOME / SELF CARE / HOMELESS Time spent for discharge: 40 Allergies/Adverse Reactions: Allergies Penicillins Allergy (Verified 05/14/22 23:31) Unknown Vital Signs: Last Vital Signs Temp 97.8 F 05/30/22 19:47 Pulse 75 05/30/22 19:47 Resp 18 05/30/22 19:47 BP 113/84 05/30/22 19:47 Pulse Ox 100 05/30/22 19:47 Last Lab: Laboratory Last Values WBC 7.7 K/mm3 (4.5-11.0) 05/15/22 20:45 RBC 4.82 M/mm3 (3.65-5.03) 05/15/22 20:45 Hgb 13.9 gm/dl (11.8-15.2) 05/15/22 20:45 Hct 42.0 % (35.5-45.6) 05/15/22 20:45 MCV 87 fl (84-94) 05/15/22 20:45 MCH 29 pg (28-32) 05/15/22 20:45 MCHC 33 % (32-34) 05/15/22 20:45 RDW 13.6 % (13.2-15.2) 05/15/22 20:45 Plt Count 317 K/mm3 (140-440) 05/15/22 20:45 Lymph % (Auto) 28.8 % (13.4-35.0) 05/15/22 20:45 [place] % (Auto) 5.9 % (0.0-7.3) 05/15/22 20:45 Eos % (Auto) 1.9 % (0.0-4.3) 05/15/22 20:45 Baso % (Auto) 0.9 % (0.0-1.8) 05/15/22 20:45 Lymph # (Auto) 2.2 K/mm3 (1.2-5.4) 05/15/22 20:45 [place] # (Auto) 0.5 K/mm3 (0.0-0.8) 05/15/22 20:45 Eos # (Auto) 0.1 K/mm3 (0.0-0.4) 05/15/22 20:45 Baso # (Auto) 0.1 K/mm3 (0.0-0.1) 05/15/22 20:45 Seg Neutrophils % 62.5 % (40.0-70.0) 05/15/22 20:45 Seg Neutrophils # 4.8 K/mm3 (1.8-7.7) 05/15/22 20:45 Sodium 140 mmol/L (137-145) 05/15/22 20:45 Potassium 3.7 mmol/L (3.6-5.0) 05/15/22 20:45 Chloride 102.0 mmol/L (98-107) 05/15/22 20:45 Carbon Dioxide 28 mmol/L (22-30) 05/15/22 20:45 Anion Gap 14 mmol/L 05/15/22 20:45 BUN 11 mg/dL (9-20) 05/15/22 20:45 Creatinine 1.3 mg/dL (0.8-1.3) 05/15/22 20:45 Estimated GFR > 60 ml/min 05/15/22 20:45 BUN/Creatinine Ratio 8 % 05/15/22 20:45 Glucose 84 mg/dL (75-100) 05/15/22 20:45 POC Glucose 80 mg/dL (70-105) 05/16/22 11:43 Hemoglobin A1c 5.6 % (4-6) 05/15/22 20:45 Calcium 9.2 mg/dL (8.4-10.2) 05/15/22 20:45 Total Bilirubin 0.50 mg/dL (0.1-1.2) 05/15/22 20:45 AST 18 units/L (5-40) 05/15/22 20:45 ALT 12 units/L (7-56) 05/15/22 20:45 Alkaline Phosphatase 61 units/L (35-129) 05/15/22 20:45 Total Protein 6.7 g/dL (6.3-8.2) 05/15/22 20:45 Albumin 4.0 g/dL (3.9-5) 05/15/22 20:45 Albumin/Globulin Ratio 1.5 % 05/15/22 20:45 Triglycerides 89 mg/dL (2-149) 05/15/22 20:45 Cholesterol 149 mg/dL (50-199) 05/15/22 20:45 LDL Cholesterol Direct 81 mg/dL (50-130) 05/15/22 20:45 HDL Cholesterol 60 mg/dL (40-59) H 05/15/22 20:45 Cholesterol/HDL Ratio 2.48 % 05/15/22 20:45 TSH 1.590 mlU/mL (0.270-4.200) 05/15/22 20:45 SARS-CoV-2 (PCR) Positive (Negative) A 05/28/22 11:30 Core Measure Documentation - Palliative Care Palliative Care/ Comfort Measures: Not Applicable - Core Measures Any of the following diagnoses?: none Exam - Constitutional Vitals: Temp Pulse Resp BP Pulse Ox 97.8 F 75 18 113/84 100 05/30/22 19:47 05/30/22 19:47 05/30/22 19:47 05/30/22 19:47 05/30/22 19:47 General appearance: Present: no acute distress - EENT Eyes: Present: PERRL, EOM intact ENT: hearing intact, clear oral mucosa - Neck Neck: Present: supple, normal ROM - Respiratory Respiratory effort: normal Plan Activity: advance as tolerated Weight Bearing Status: Weight Bear as Tolerated Care Plan Goals: Maintain good and stable mental health Plan of Treatment: The patient should be compliant with medications, not to use drugs, and not to drink alcohol. The patient understands that if suicidal ideas, homicidal ideas or any endangering feeling arise, the patient should seek assistance including, but not limited to crisis hotline, and emergency room. Assessment: Dementia with Behavioral Disturbance Follow up with: PRIMARY CARE, [Primary Care Provider] - 7 Days Prescriptions: traZODone [Desyrel] 50 mg PO QHS #30 tablet Mirtazapine [Remeron 15mg TAB] 7.5 mg PO QHS #15 tablet risperiDONE [RisperDAL] 0.25 mg PO BID #60 tablet hydrOXYzine PAMOATE [Vistaril] 25 mg PO DAILY #30 capsule
[2022-05-31] MEDS: hydrOXYzine PAMOATE 25 MG CAP PO SCH (09:17)
[2022-05-31] MEDS: risperiDONE 0.25 MG TAB PO SCH (09:17)
== END 2022-05-31 10:22 | disposition home or self-care (01) | DRG 884 ==
LOC: UNDOADMIN 14:46 → 3A 14:46 → 5A 05-15 00:16
PROVIDERS: ADMIT Psychiatry & Neurology Psychiatry; ATTEND Psychiatry & Neurology Psychiatry
DX: F01.51 Vascular dementia, unspecified severity, with behavioral disturbance (principal); U07.1 COVID-19; F32.9 Major depressive disorder, single episode, unspecified; F41.1 Generalized anxiety disorder; I67.2 Cerebral atherosclerosis; Z88.0 Allergy status to penicillin; Z83.3 Family history of diabetes mellitus; Z82.49 Family history of ischemic heart disease and other diseases of the circulatory system
CPT/HCPCS: 36415; 80053; 80061; 82962; 83036; 84443; 85025; G0378; J3490; U0003